=== PATIENT | female | born 1945 | race Caucasian/White ===

== ENCOUNTER 2018-02-16 13:11 | Day surgery (SDC) | payer MEDICARE ==
[~2018-02-16] VITALS: Ht 165.1 cm; Wt 61.7 kg
[~2018-02-16 13:11] MED LIST: ALBU90OI INH; ALPR.5 PO; ATEN25 PO; BUDE6HFA INH; CITA20 PO; HYDACE5 PO; LEVSOD100 PO; OXYB5 PO; PANT40 PO; PRAV20 PO; SUCR1 PO; SULFAMETHOXAZOLE PO; TIOT18; VENL150ER PO
== END 2018-02-16 16:00 | disposition home or self-care (01) ==
LOC: ORSCSDS 13:11
PROVIDERS: Surgery
PROC: 0DJD8ZZ Inspection of Lower Intestinal Tract, Via Natural or Artificial Opening Endoscopic (ICD-10-PCS; principal; 2018-02-16 14:30)
DX: Z12.11 Encounter for screening for malignant neoplasm of colon (principal); K57.30 Diverticulosis of large intestine without perforation or abscess without bleeding; E03.9 Hypothyroidism, unspecified; J43.9 Emphysema, unspecified; F17.210 Nicotine dependence, cigarettes, uncomplicated; Z79.899 Other long term (current) drug therapy
CPT/HCPCS: J7120

== ENCOUNTER 2019-02-10 08:50 | Inpatient (IN) | payer MEDICARE ==
[~2019-02-10] VITALS: Ht 165.1 cm; Wt 67.7 kg
[~2019-02-10 08:50] MED LIST changes: +ABILIFY PO; -ATEN25 PO; -LEVSOD100 PO; +LEVSOD75 PO; +SALM50IP INH
[2019-02-10] MEDS ORDERED: Tizanidine HCl2 MG PO (09:06)
[2019-02-10] MEDS ORDERED: Venlafaxine HC225 MG PO (09:06)
[2019-02-10] MEDS ORDERED: Hydrocodone-Ap1 EA23 PO (09:07)
[2019-02-10 09:14] LABS: BASOPHILS ABSOLUTE AUTO 0.02 K/mm3 (0.00-0.23); BASOPHILS PERCENT AUTO 0 % (0-2); EOSINOPHILS ABSOLUTE AUTO 0.01 K/mm3 (0.00-0.68); EOSINOPHILS PERCENT AUTO 0 % (0-6); Hematocrit 35.6 % (33.0-51.0); Hemoglobin 12.4 g/dL (11.5-16.0); IMMATURE GRAN ABSOLUTE AUTO 0.06 K/mm3 (0.00-0.10); IMMATURE GRAN PERCENT AUTO 1 % (0-1); LYMPHOCYTES ABSOLUTE AUTO 0.43 K/mm3 (0.84-5.20); LYMPHOCYTES PERCENT AUTO 4 % (21-46); MONOCYTES PERCENT AUTO 3 % (4-13); Mean Corpuscular HGB 29.9 pg (26.0-34.0); Mean Corpuscular HGB Conc 34.8 g/dL (31.5-36.5); Mean Corpuscular Volume 86 fL (80-100); Mean Platelet Volume 9.4 fL (9.1-12.4); NEUTROPHILS ABSOLUTE AUTO 11.14 K/mm3 (1.96-9.15); NEUTROPHILS PERCENT AUTO 92 % (41-73); Platelet Count 329 K/mm3 (150-400); RDW Coefficient Variation 14.5 % (11.7-14.2); Red Blood Cell Count 4.15 M/mm3 (3.80-5.20); White Blood Cell Count 12.06 K/mm3 (4.00-11.30)
[2019-02-10 09:31] LABS: Alanine Aminotransfer (ALT/SGP 17 U/L (12-78); Albumin, Blood 3.6 g/dL (3.4-5.0); Albumin/Globulin Ratio 0.9 (0.8-1.8); Alk Phos 167 U/L (50-136); Anion Gap 8 mmol/L (6-16); Aspartate Aminotrans (AST/SGOT 26 U/L (12-37); Bilirubin, Total 0.6 mg/dL (0.1-1.0); Blood Urea Nitrogen 24 mg/dL (8-24); Bun/Creatinine Ratio 31.8 (12.0-20.0); CO2, Blood 29 mmol/L (21-32); Calcium, Blood 9.6 mg/dL (8.5-10.1); Chloride, Blood 98 mmol/L (98-108); Creatinine, Blood 0.75 mg/dL (0.40-1.00); Globulin, Blood 3.9 g/dL (2.2-4.0); Glomerular Filtration Rate >60 (60-); Glucose, Blood 178 mg/dL (70-99); Potassium, Blood 4.1 mmol/L (3.5-5.5); Sodium, Blood 135 mmol/L (136-145); Total Protein, Blood 7.5 g/dL (6.4-8.2)
[2019-02-10 10:38] LABS: International Normalized Ratio 0.98; Prothrombin Time Results 10.4 Sec (9.7-11.5)
[2019-02-10] MEDS ORDERED: ATEN25 PO (12:16)
--- NOTE | 2019-02-10 16:28 | NUR ---
2 cc of air removed from the TR band. No bleeding, no hematoma. Small amount of bruising noted under the TR band and just distal to the TR band, where there are 2 additional non-arterial puncture sites; unchanged from the initial assessment upon arrival from the heart center. The pt reports no pain, and denies any difficulty breathing, chest discomfort or pain in her right arm/hand. Vital signs stable, SpO2 measured on index finger of right hand. Ambulatory to the bathroom and back to bed with standby assistance. She was able to eat a very small amount of a snack, and drink some coffee and water.
--- NOTE | 2019-02-10 17:24 | NUR ---
TR band was slowly deflated, and the site is without any bleeding, swelling, hematoma. Bruising (soft to palpation) area about 1-2 cm round distal to the TR band border is stable. Fingers are pink and warm to the touch at this time. The pt reports no pain/discomfort at this time. White immobilizer board remains in place as well as the completely deflated TR band.
--- NOTE | 2019-02-10 18:51 | NUR ---
TR band was removed at this time, 1.25 hours after deflation was completed. Site was cleaned with chlorohexidine swabs and clear tegederm dressing was applied. Soft, no swelling, no bleeding. Bruised area remains unchanged from prior assessment. The pt states she is tired, trying to get some more sleep. Declined dinner at this time. STates lately she has had a poor appetite.
[2019-02-11 04:22] LABS: BASOPHILS ABSOLUTE AUTO 0.01 K/mm3 (0.00-0.23); BASOPHILS PERCENT AUTO 0 % (0-2); EOSINOPHILS ABSOLUTE AUTO 0.02 K/mm3 (0.00-0.68); EOSINOPHILS PERCENT AUTO 0 % (0-6); Hematocrit 26.3 % (33.0-51.0); Hemoglobin 9.2 g/dL (11.5-16.0); IMMATURE GRAN ABSOLUTE AUTO 0.02 K/mm3 (0.00-0.10); IMMATURE GRAN PERCENT AUTO 0 % (0-1); LYMPHOCYTES PERCENT AUTO 13 % (21-46); MONOCYTES ABSOLUTE AUTO 0.59 K/mm3 (0.16-1.47); MONOCYTES PERCENT AUTO 11 % (4-13); Mean Corpuscular HGB 30.6 pg (26.0-34.0); Mean Corpuscular Volume 87 fL (80-100); Mean Platelet Volume 9.1 fL (9.1-12.4); NEUTROPHILS ABSOLUTE AUTO 3.96 K/mm3 (1.96-9.15); NEUTROPHILS PERCENT AUTO 75 % (41-73); Platelet Count 225 K/mm3 (150-400); RDW Coefficient Variation 14.8 % (11.7-14.2); RDW Standard Deviation 47.2 fL (35.1-46.3); Red Blood Cell Count 3.01 M/mm3 (3.80-5.20)
[2019-02-11 04:45] LABS: Alanine Aminotransfer (ALT/SGP 14 U/L (12-78); Alk Phos 120 U/L (50-136); Anion Gap 8 mmol/L (6-16); Aspartate Aminotrans (AST/SGOT 28 U/L (12-37); Bilirubin, Total 0.6 mg/dL (0.1-1.0); Blood Urea Nitrogen 26 mg/dL (8-24); Bun/Creatinine Ratio 35.4 (12.0-20.0); CO2, Blood 29 mmol/L (21-32); Calcium, Blood 8.7 mg/dL (8.5-10.1); Chloride, Blood 102 mmol/L (98-108); Creatinine, Blood 0.73 mg/dL (0.40-1.00); Globulin, Blood 2.9 g/dL (2.2-4.0); Glomerular Filtration Rate >60 (60-); Glucose, Blood 110 mg/dL (70-99); Magnesium, Blood 2.2 mg/dL (1.6-2.4); Phosphorus, Blood 3.1 mg/dL (2.5-4.9); Sodium, Blood 139 mmol/L (136-145); Total Protein, Blood 5.9 g/dL (6.4-8.2)
--- NOTE | 2019-02-11 06:31 | NUR ---
UPDATE DR STUART NOTIFIED SEVERAL TIMES ABOUT LOW BLOOD PRESSURE AND SEVERAL IV FLUID BOLUSES WERE ORDERED THROUGHOUT THE NIGHT (SEE EMAR). AT APPROX 0610 DR FITZPATRICK WAS UPDATED ON THE LOW BLOOD PRESSURES THROUGHOUT THE NIGHT AND THE INTERVENTIONS PROVIDED THROUGHOUT THE NIGTH. DR FITZPATRICK ALSO NOTIFIED THAT PATIENT'S HGB DROPPED FROM 12.4 DOWN TO 9.2. A ONE LITER FLUID BOLUS WAS ORDERED AND DR FITZPATRICK STATED THAT SHE WOULD STOP BY TO SEE PATIENT FIRST THING THIS MORNING. PATIENT STATES THAT SHE HAS FELT SLIGHTLY DIZZY SOMETIMES WHEN STANDING UP BUT HAS MOSTLY REMAINED ASYMPTOMATIC. PATIENT HAS NO COMPLAINTS OF PAIN AND PATIENT'S RADIAL ACCESS SITE TO RIGHT WRIST HAS NO SIGNS OF BLEEDING OR HEMATOMA FORMATION. WILL CONTINUE TO MONITOR.
--- NOTE | 2019-02-11 06:37 | NUR ---
UPDATE AT APPROX 0630 DR STUART CAME BY TO ASSESS PATIENT.
--- NOTE | 2019-02-11 08:03 | NUR ---
SHIFT SUMMARY PATIENT PLEASENT AND COOPERATIVE THROUGHOUT THE NIGHT. PATIENT APPEARED TO SLEEP WELL THROUGHOUT MOST OF THE SHIFT AND STATES THAT SHE FEELS SHE SELPT WELL LAST NIGHT. PATIENT'S ANGIO ACCESS SITE TO RIGHT WRIST REMAINS UNCHANGED THROUGHOUT THE NIGHT WITH NO SIGNS OF BLEEDING OR HEMATOMA FORMATION. PATIENT'S VITAL SIGNS CHARTED. TREATED PER ORDERS (SEE PREVIOUS NURSE NOTES). REPORT GIVEN TO ONCOMING RN.
--- NOTE | 2019-02-11 09:50 | NUR ---
UPDATE CALLED DR. FITZPATRICK ABOUT LOW BLOOD PRESSURE. PT COMPLAINS OF "SEEING SPARKLES AND NOT FEELING RIGHT". NS INFUSING AT 200MLS/H. ORDERS TO HOLD ALL MEDS AFFECTING BP. ATTEMPTING TO CONTACT CARDIOLOGY. WILL AWAIT CALL BACK. WILL CONTINUE TO MONITOR CLOSELY.
[2019-02-11 10:26] LABS: Hematocrit 26.3 % (33.0-51.0); Hemoglobin 8.8 g/dL (11.5-16.0)
--- NOTE | 2019-02-11 10:58 | NUR ---
BP REMAINS LOW. STILL UNABLE TO CONTACT DR. OROZCO. PT ASYMPTOMATIC AT THIS TIME. DR. FITZPATRICK CALLED AND NOTIFIED. AWAITING NEW ORDERS. WILL CONTINUE TO MONITOR CLOSELY.
--- NOTE | 2019-02-11 11:31 | NUR ---
BP OF 60/41. PT REPORTS BLURRED VISION. DR. FITZPATRICK CALLED. 1L FLUID BOLUS INFUSING. ORDERS TO TRANSFER TO ICU.
--- NOTE | 2019-02-11 12:14 | NUR ---
ASSUMED CARE PT ARRIVES FROM PCU AT THIS TIME. PT. ALERT AND ORIENTED UPON ARRIVAL, ON ROOM AIR. PT. TRANSFERRED TO ICU BED. PLACED ON CAREER PORTALS TEACHER. PT HAD NITRO PATCH IN PLACE TO LEFT CHEST WALL UPON ARRIVAL, THIS WAS REMOVED PROMPTLY. PT IS HYPOTENSIVE UPON ARRIVAL WITH 1LFLUID BOLUS INFUSING. PT. NOT SYMPTOMATIC AT THIS TIME, HR 70S. DR. GUTIERREZ (DR. Fischer) AT BEDSIDE. FLUID BOLUS REDUCED TO A 250CC BOLUS. FINE CRACKLES IN BASES OF LUNGS UPON ARRIVAL. PT. DENIES ANY CHEST PAIN OR PRESSURE AND DENIES ANY FEELINGS OF SOB. PT. WELLER; ARM BOARD IN PLACE TO RIGHT WRIST FROM PREVIOUS ANGIO ACCESS SITE. SITE WNL, NO HEMATOMA. MIDODRINE 5MG TAB GIVEN PER DR. Fischer. WILL CONTINUE TO MONITOR CLOSELY
--- NOTE | 2019-02-11 12:50 | NUR ---
UPDATE 250CC BOLUS COMPELTED. PT. BP IMPROVING, NOW 90S SYSTOLIC. DR. BIRD IN TO SEE PT. LUNCH TRAY PROVIDED. CALL LIGHT IN REACH.
--- NOTE | 2019-02-11 14:14 | NUR ---
BLOOD PRESSURE PT. UP TO BEDSIDE COMMODE WITH STAND BY ASSIST. BP WNL PRIOR TO STANDING. PT DENIED FEELING DIZZY WHEN STANDING, NO BM JUST GAS. UPON GETTING BACK TO BED PT BP TRENDING BACK DOWN. DR. BIRD AWARE, ADDITIONAL 10MG MIDODRINE GIVEN. [facility] CALLED FOR AN ADDITIONAL H&H
[2019-02-11 14:23] LABS: Hemoglobin 8.5 g/dL (11.5-16.0)
--- NOTE | 2019-02-11 17:35 | NUR ---
SHIFT SUMMARY PT. REMAINS UNSYMPTOMATIC SINCE ARRIVAL TO ICU, HOWEVER BLOOD PRESSURE CONTINUES TO BY HYPOTENSIVE AT TIMES. PER DR. FITZPATRICK PT. TO HAVE PRN MIDODRINE ORDERED. PT SITTING UP ON BEDSIDE EATING DINNER. NADN. CALL LIGHT IN REACH. REPORT TO ONCOMING RN.
--- NOTE | 2019-02-11 19:30 | NUR ---
ASSUMED CARE PT SITTING IN BED WATCHING TV, PT IS A&0, DENIES COMPLAINTS OF PAIN OR SOB. PER PT, WHEN BP GETS TOO LOW, SHE IS DIZZY AND HAS VISION CHANGES-DENIES CURRENTLY. PLAN ON PRN MIDODRINE FOR SBP <80 OR MAP <60. SBP CURRENTLY 80-90, ECG SHOWS SR WITH FREQUENT PVC'S, SPOT CHECK SPO2 AT 98% ON RA.
--- NOTE | 2019-02-12 02:32 | NUR ---
RHYTHM CHANGE PT UP TO BATHROOM AT 0150, HR NOTED TO INCREASE TO 130-150'S. PT REPORTING ANXIETY. 12 LEAD EKG OBTAINED SHOWING AFIB. CALL TO DR ELLSWORTH-UPDATED ON FINDINGS AND INABILITY TO GIVE PO TOPROL D/T HYPOTENSION FOR LAST 36 HOURS. ORDER FOR IV LOPRESSOR NOW.
[2019-02-12 03:29] LABS: BASOPHILS ABSOLUTE AUTO 0.02 K/mm3 (0.00-0.23); BASOPHILS PERCENT AUTO 0 % (0-2); EOSINOPHILS ABSOLUTE AUTO 0.06 K/mm3 (0.00-0.68); EOSINOPHILS PERCENT AUTO 1 % (0-6); Hematocrit 29.1 % (33.0-51.0); Hemoglobin 9.8 g/dL (11.5-16.0); IMMATURE GRAN ABSOLUTE AUTO 0.03 K/mm3 (0.00-0.10); IMMATURE GRAN PERCENT AUTO 0 % (0-1); LYMPHOCYTES ABSOLUTE AUTO 0.48 K/mm3 (0.84-5.20); LYMPHOCYTES PERCENT AUTO 5 % (21-46); MONOCYTES ABSOLUTE AUTO 0.81 K/mm3 (0.16-1.47); MONOCYTES PERCENT AUTO 9 % (4-13); Mean Corpuscular HGB 29.9 pg (26.0-34.0); Mean Corpuscular HGB Conc 33.7 g/dL (31.5-36.5); Mean Corpuscular Volume 89 fL (80-100); Mean Platelet Volume 9.3 fL (9.1-12.4); NEUTROPHILS ABSOLUTE AUTO 7.48 K/mm3 (1.96-9.15); NEUTROPHILS PERCENT AUTO 84 % (41-73); Platelet Count 209 K/mm3 (150-400); RDW Coefficient Variation 15.2 % (11.7-14.2); RDW Standard Deviation 49.9 fL (35.1-46.3); Red Blood Cell Count 3.28 M/mm3 (3.80-5.20); White Blood Cell Count 8.88 K/mm3 (4.00-11.30)
[2019-02-12 03:55] LABS: Anion Gap 8 mmol/L (6-16); Blood Urea Nitrogen 17 mg/dL (8-24); Bun/Creatinine Ratio 22.5 (12.0-20.0); CO2, Blood 25 mmol/L (21-32); Calcium, Blood 8.7 mg/dL (8.5-10.1); Chloride, Blood 102 mmol/L (98-108); Creatinine, Blood 0.75 mg/dL (0.40-1.00); Glomerular Filtration Rate >60 (60-); Glucose, Blood 106 mg/dL (70-99); Potassium, Blood 4.1 mmol/L (3.5-5.5); Sodium, Blood 135 mmol/L (136-145)
[2019-02-12 04:12] LABS: Troponin I 0.934 ng/mL (0.000-0.040)
--- NOTE | 2019-02-12 05:43 | NUR ---
UPDATE ON AFIB PT HR 110-120'S AFTER LOPRESSOR. NO BACK IN THE 130-170'S AFTER USING RESTROOM. DISCUSSED UOP AND CURRENT BP WITH DR BIRD. ORDERS FOR AMIODARONE BOLUS FOLLOWED BY STANDARD GTT.
--- NOTE | 2019-02-12 07:10 | NUR ---
BEDSIDE REPORT TAKEN. AMIODARONE GTT AT 1MG/MIN. PT IN AFIB W RATE 110-130. BP STABLE W SBP 120-130'S. PT DENIES COMPLAINTS AND IS IN DENIAL ABOUT EVENTS; ESSENTIALLY FEELS TOO MUCH OF A FUSS IS BEING MADE OVER HER. PT EDUCATED.
--- NOTE | 2019-02-12 08:49 | NUR ---
PT AWAKE SITTING UP IN BED. DENIES C/O PAIN, CHEST PAIN, NAUSEA, SOB. PT APPEARS SOMEWHAT ANXIOUS, STATES SHE FEELS FINE AND BELIEVES SHE COULD GO HOME. PT SAT AT SIDE OF BED FOR BREAKFAST; VISIBLY SHORT OF BREATH W EXERTION; PT DENIES SOB OR DIZZINESS. PT SBA TO TOILET TO VOID; HEART RATE 150-170, RESP RATE 25-30 W AUDIBLE WHEEZES, NOTICEABLY SOB; AGAIN PT DENIES COMPLAINTS OF SOB OR DIZZINESS, "I FEEL FINE", "WHAT AM I GOING TO BE STUCK IN BED FOREVER?" PT FRUSTRATED. PT CONSOLED AND EDUCATED W GOOD OUTCOME. PT RESTING IN BED NOW.
--- NOTE | 2019-02-12 10:37 | NUR ---
DR GUTIERREZ AND DR FITZPATRICK IN TO SEE PT THIS AM. SEE NEW ORDERS. PLAN; CHANGE TO PCU STATUS, CONT AMIO GTT, POSSIBLE DICHARGE HOME TOMORROW, START LOW DOSE BETA SUJATHA PO BID.
[2019-02-12 11:57] LABS: Percent Saturation 26.2 % (15.0-50.0)
--- NOTE | 2019-02-12 12:08 | NUR ---
LASIX 20MG GIVEN, WILL CHECK ORTHOSTATIC PRESSURES PRIOR TO CHANGE IN STATUS PER DR BIRD.
[2019-02-12 12:17] LABS: Phosphorus, Blood 2.3 mg/dL (2.5-4.9)
--- NOTE | 2019-02-12 12:38 | NUR ---
AMIODARONE DECREASED TO 0.5MG/MIN PER ORDERS. PT SITTING AT SIDE OF BED EATING LUNCH AFTER NAP. BP STABLE
--- NOTE | 2019-02-12 16:40 | NUR ---
PT CONVERTED TO SR W RATE 80'S AT 1431. ORTHOSTATIC PRESSURES TAKEN PER DR SUBRAMANIAN REQUEST. ORTHOSTATIC BP STABLE; RESULTS GIVEN TO DR BIRD.
--- NOTE | 2019-02-12 19:15 | NUR ---
ASSUMED CARE PT RESTING IN BED, CURRENTLY WITHOUT COMPLAINTS OF PAIN OR SHORTNESS OF BREATH. PER AM RN, PT CONVERTED TO SR AROUND 1400. AMIODARONE GTT CONTINUES AT 0.5MG/MIN UNTIL 0630. DISCUSSED OVERNIGHT PLAN WITH PT, REQUESTING XANAX AT HS, DISCUSSED BED BATH WITH REGIONAL CLIMATE CHANGE ANALYST. BP STABLE, ECG SHOWS SR WITH FREQ PVC'S AND O2 SATS 96% ON RA.
[2019-02-13 03:53] LABS: BASOPHILS ABSOLUTE AUTO 0.01 K/mm3 (0.00-0.23); BASOPHILS PERCENT AUTO 0 % (0-2); EOSINOPHILS ABSOLUTE AUTO 0.09 K/mm3 (0.00-0.68); EOSINOPHILS PERCENT AUTO 2 % (0-6); Hematocrit 28.3 % (33.0-51.0); Hemoglobin 9.5 g/dL (11.5-16.0); IMMATURE GRAN ABSOLUTE AUTO 0.02 K/mm3 (0.00-0.10); IMMATURE GRAN PERCENT AUTO 0 % (0-1); LYMPHOCYTES ABSOLUTE AUTO 0.51 K/mm3 (0.84-5.20); LYMPHOCYTES PERCENT AUTO 11 % (21-46); MONOCYTES ABSOLUTE AUTO 0.51 K/mm3 (0.16-1.47); MONOCYTES PERCENT AUTO 11 % (4-13); Mean Corpuscular HGB 29.4 pg (26.0-34.0); Mean Corpuscular HGB Conc 33.6 g/dL (31.5-36.5); Mean Corpuscular Volume 88 fL (80-100); Mean Platelet Volume 9.7 fL (9.1-12.4); NEUTROPHILS ABSOLUTE AUTO 3.43 K/mm3 (1.96-9.15); NEUTROPHILS PERCENT AUTO 75 % (41-73); Platelet Count 172 K/mm3 (150-400); RDW Coefficient Variation 15.1 % (11.7-14.2); RDW Standard Deviation 48.2 fL (35.1-46.3); Red Blood Cell Count 3.23 M/mm3 (3.80-5.20); White Blood Cell Count 4.57 K/mm3 (4.00-11.30)
[2019-02-13 04:16] LABS: Anion Gap 8 mmol/L (6-16); Blood Urea Nitrogen 14 mg/dL (8-24); Bun/Creatinine Ratio 19.2 (12.0-20.0); CO2, Blood 27 mmol/L (21-32); Calcium, Blood 8.7 mg/dL (8.5-10.1); Chloride, Blood 102 mmol/L (98-108); Creatinine, Blood 0.73 mg/dL (0.40-1.00); Glomerular Filtration Rate >60 (60-); Glucose, Blood 119 mg/dL (70-99); Magnesium, Blood 2.1 mg/dL (1.6-2.4); Potassium, Blood 3.5 mmol/L (3.5-5.5); Sodium, Blood 137 mmol/L (136-145); Troponin I 0.365 ng/mL (0.000-0.040)
--- NOTE | 2019-02-13 06:17 | NUR ---
SHIFT SUMMARY NO ACUTE EVENTS OVERNIGHT. PT WAS ALBE TO SLEEP FOR MAJORITY OF SHIFT. THIS AM WHILE GETTING UP TO BR, EXPIRATORY WHEEZING RETURNED, NO AUDIBLE RALES HEARD. SPO2 96% ON RA AND PT DENIES SOB. ECG HAS REMAINED SR WITH PVC'S ENTIRE SHIFT. VSS, SPO2 >90 ON SPOT CHECKS. AMIODARONE COMPLETED AND OFF AT 0615.
--- NOTE | 2019-02-13 08:40 | NUR ---
PT SITTING UP IN BED VISITING W FAMILY. DENIES COMPLAINTS. PT REMAINS IN NSR, BP STABLE. PLAN OOB TO CHAIR. POSSIBLE DISCHARGE HOME TODAY. LUNGS VERY DIMINISHED T/O, PT DENIES SOB, SATS 96% ON RA. PT DOES LOOK BETTER OVERALL COMPARED TO YESTERDAY.
[2019-02-13] MEDS ORDERED: METO25 PO (13:09)
[2019-02-13] MEDS ORDERED: ASPI81CH PO (13:13)
[2019-02-13] MEDS ORDERED: Pacerone400 MG PO (13:13)
[2019-02-13] MEDS ORDERED: ATOR40TA PO (13:14)
--- NOTE | 2019-02-13 13:55 | NUR ---
PT TO BE DISCARGED HOME. DR FITZPATRICK CALLED R/T RX PT'S PHARMACY IS CLOSED TODAY. ONE DOSE OF AMIODARONE WILL BE GIVEN PRIOR TO DISCHARGE. BP 83/45 W MAP 59, HEART RATE 80. VITALS GIVEN TO DR FITZPATRICK; OKAY TO MISS TONIGHTS DOSE OF LOPRESSOR. PT WILL ALSO HAVE CHANGE TO AMIO RX, PT WILL START OUT W AMIO 400MG BID INSTEAD OF TID. THESE CHANGES GIVEN TO PT. PT UNDERSTANDS VERBAL AND WRITTEN DC INSTRUCTIONS. PT GIVEN ICU NUMBER FOR ANY QUESTIONS OR CONCERNS.
--- NOTE | 2019-02-13 14:23 | NUR ---
PT DC'D HOME IN HER SISTERS CARE; PT DC'D IN STABLE CONDITION
== END 2019-02-13 14:25 | disposition home or self-care (01) | DRG 280 ==
LOC: ER 08:50 → ICUE 10:27 → ICUW 10:27 → ICUE 13:29 → PCU 14:23 → ICUE 02-11 11:50
PROVIDERS: Emergency Medicine; Internal Medicine Critical Care Medicine; Pharmacist; Student in an Organized Health Care Education/Training Program; ADMIT Hospitalist
PROC: 4A023N7 Measurement of Cardiac Sampling and Pressure, Left Heart, Percutaneous Approach (ICD-10-PCS; principal; 2019-02-10)
PROC: B211YZZ Fluoroscopy of Multiple Coronary Arteries using Other Contrast (ICD-10-PCS; 2019-02-10)
DX: I21.4 Non-ST elevation (NSTEMI) myocardial infarction (principal); I50.41 Acute combined systolic (congestive) and diastolic (congestive) heart failure; C91.10 Chronic lymphocytic leukemia of B-cell type not having achieved remission; I11.0 Hypertensive heart disease with heart failure; D64.9 Anemia, unspecified; I95.2 Hypotension due to drugs; I48.91 Unspecified atrial fibrillation; E83.39 Other disorders of phosphorus metabolism; K21.9 Gastro-esophageal reflux disease without esophagitis; E03.9 Hypothyroidism, unspecified; J44.9 Chronic obstructive pulmonary disease, unspecified; G89.4 Chronic pain syndrome; M54.16 Radiculopathy, lumbar region; F41.8 Other specified anxiety disorders
CPT/HCPCS: 36415; 71045; 74018; 80048; 80053; 82607; 82728; 83540; 83550; 83690; 83735; 83880; 84100; 84484; 85014; 85018; 85025; 85347; 85610; 85730; 93005; 93010; 93306; 93454; 93571; 93880; 94640; 94760; 96365; 96366; 96375; 96376; 99152; 99153; 99285-25; A9270-GY; C1769; C1887; C1894; J0282; J1644; J1940; J2250; J3010; J7030; J7060; Q9967

== ENCOUNTER → 2019-07-07 | Outpatient (CLI) | payer MEDICARE ==
[~2019-07-07] MED LIST changes: +ASPI81CH PO; +ATEN25 PO; +ATOR40TA PO; +Hydrocodone-Ap1 EA23 PO; +METO25 PO; +Pacerone400 MG PO; +Tizanidine HCl2 MG PO; +Venlafaxine HC225 MG PO
== END ==
LOC: LAB SHORT 10:15 → LAB EV 10:15
DX: R10.9 Unspecified abdominal pain (principal)
CPT/HCPCS: 87077; 87086; 87186

== ENCOUNTER → 2019-08-04 | Outpatient (CLI) | payer MEDICARE | LOC: LAB SHORT 10:15 → LAB EV 10:15 | DX: R35.0 Frequency of micturition (principal) | CPT/HCPCS: 87077; 87086; 87186 ==

== ENCOUNTER → 2019-08-22 | Outpatient (CLI) | payer MEDICARE | LOC: LAB SHORT 12:00 → LAB EV 12:00 | DX: R35.0 Frequency of micturition (principal) | CPT/HCPCS: 87077; 87086; 87186 ==

== ENCOUNTER 2019-11-09 22:02 | Inpatient (IN) | payer MEDICARE ==
[~2019-11-09] VITALS: Ht 162.6 cm; Wt 59.5 kg
[2019-11-09 22:18] LABS: BASOPHILS ABSOLUTE AUTO 0.04 K/mm3 (0.00-0.23); BASOPHILS PERCENT AUTO 0 % (0-2); EOSINOPHILS ABSOLUTE AUTO 0.03 K/mm3 (0.00-0.68); EOSINOPHILS PERCENT AUTO 0 % (0-6); Hematocrit 34.5 % (33.0-51.0); Hemoglobin 11.9 g/dL (11.5-16.0); IMMATURE GRAN ABSOLUTE AUTO 0.13 K/mm3 (0.00-0.10); IMMATURE GRAN PERCENT AUTO 1 % (0-1); LYMPHOCYTES ABSOLUTE AUTO 0.76 K/mm3 (0.84-5.20); LYMPHOCYTES PERCENT AUTO 5 % (21-46); MONOCYTES ABSOLUTE AUTO 0.93 K/mm3 (0.16-1.47); MONOCYTES PERCENT AUTO 6 % (4-13); Mean Corpuscular HGB 29.5 pg (26.0-34.0); Mean Corpuscular HGB Conc 34.5 g/dL (31.5-36.5); Mean Corpuscular Volume 85 fL (80-100); Mean Platelet Volume 9.8 fL (9.1-12.4); NEUTROPHILS ABSOLUTE AUTO 14.24 K/mm3 (1.96-9.15); NEUTROPHILS PERCENT AUTO 88 % (41-73); Platelet Count 457 K/mm3 (150-400); RDW Coefficient Variation 15.8 % (11.7-14.2); RDW Standard Deviation 47.8 fL (35.1-46.3); Red Blood Cell Count 4.04 M/mm3 (3.80-5.20); White Blood Cell Count 16.13 K/mm3 (4.00-11.30)
[2019-11-09 22:36] LABS: Alanine Aminotransfer (ALT/SGP 14 U/L (12-78); Albumin, Blood 2.8 g/dL (3.4-5.0); Albumin/Globulin Ratio 0.7 (0.8-1.8); Alk Phos 67 U/L (50-136); Anion Gap 13 mmol/L (6-16); Aspartate Aminotrans (AST/SGOT 24 U/L (12-37); Bilirubin, Total 0.9 mg/dL (0.1-1.0); Blood Urea Nitrogen 14 mg/dL (8-24); Bun/Creatinine Ratio 19.4 (12.0-20.0); CO2, Blood 29 mmol/L (21-32); Calcium, Blood 8.4 mg/dL (8.5-10.1); Chloride, Blood 92 mmol/L (98-108); Creatinine, Blood 0.72 mg/dL (0.40-1.00); Globulin, Blood 3.8 g/dL (2.2-4.0); Glomerular Filtration Rate >60 (60-); Glucose, Blood 153 mg/dL (70-99); Potassium, Blood 3.8 mmol/L (3.5-5.5); Sodium, Blood 134 mmol/L (136-145); Total Protein, Blood 6.6 g/dL (6.4-8.2)
[2019-11-09] MEDS ORDERED: ONDA4ODT (22:38)
[2019-11-09] MEDS ORDERED: Ventolin/Prove6.7 GM (22:39)
[2019-11-09] MEDS ORDERED: ALPRAZOLAM0.5 M1 PO (22:39)
[2019-11-09] MEDS ORDERED: FLUTICASONE-SA1 EAC4 INH (22:39)
[2019-11-09 23:34] LABS: Troponin I 0.023 ng/mL (0.000-0.040)
[2019-11-10 00:47] LABS: Source, Urine Clean Catch
[2019-11-10 00:51] LABS: Blood, Urine Neg (Neg); Glucose Qualitative, Urine Neg (Neg); Ketones, Urine 3+ (Neg); Leukocyte Esterase, Urine 1+ (Neg); Nitrite, Urine Neg (Neg); Protein, Urine 1+ (Neg); Urobilinogen, Urine 2+ (Normal)
[2019-11-10 00:56] LABS: Bilirubin, Urine 2+ (Neg)
[2019-11-10 00:57] LABS: Appearance, Urine Hazy (Clear); Bacteria Mod /hpf; Color, Urine Amber (P-Yellow); Red Blood Cells, Urine 0-2 /hpf (0-2); Squamous Epithelial Cells Few /hpf (Few)
[2019-11-10 00:58] LABS: Amorphous Light (0-Heavy); Hyaline Casts TNTC /lpf (0-2); Mucus Light (0-Heavy)
--- NOTE | 2019-11-10 03:57 | NUR ---
SHIFT SUMMARY: YOSSI IS A&OX4. SHE WAS ADMITTED FROM THE ER THIS MORNING. SHE REPORTS HAVING HAD A BOWEL RESECTION 10/27/19 AFTER WHICH SHE HAS HAD CONTINUAL DIFFICULTIES WITH N&V. SHE STATES THAT SHE CALLED HER SURGEON'S OFFICE TODAY AND THEY GAVE HER A PRESCRIPTION FOR ZOFRAN. SHE STATES THAT SHE DID TRY TO EAT YESTERDAY AROUND 12, BUT VOMITED SHORTLY AFTER. NG TUBE TO LOW INTERMITTENT SUCTION. GENTLE IV FLUIDS D/T HEART FAILURE. IV PATENT. VSS, NO ACUTE EVENTS. NPO, ON ROOM AIR. SHE IS STANDBY ASSIST. ATTENDS IN PLACE. SHE WAS UNABLE TO VOID IN THE ER AND STRAIGHT CATH WAS PERFORMED FOR URINE SAMPLE. SHE STATES THAT SHE HAS NOT BEEN ABLE TO KEEP MUCH OF ANYTHING DOWN OVER THE PAST 5-6 DAYS AND FEELS THAT IS WHY SHE IS NOT ABLE TO URINATE. SHE IS LYING IN BED WITH HER CALL LIGHT IN REACH. ABDOMEN TENDER. SHE STATES THAT THE FENTANYL HELPS CONTROL THE PAIN FOR A SHORT TIME. WILL REPORT TO DAY SHIFT RN.
--- NOTE | 2019-11-10 15:39 | NUR ---
SHIFT SUMMARY PT IS A/O X 4 AND C/O BACK PAIN THROUGHOUT THE DAY. PAIN MEDS HAVE BEEN GIVEN ORDERED AND REPORTED EFFECTIVE. SHE DENIES ANY NAUSEA TODAY BUT DOES REPORT THAT THE NG TUBE IS UNCOMFORTABLE ALTHOUGH EFFECTIVE. NG TUBE OUTPUT IS A GREEN/BROWN COLOR. DR BETANCUR WAS CALLED FOR A SURGICAL CONSULT AND SAW THE PT THIS AFTERNOON AND ORDERED A BAG OF FLUIDS WHICH IS RUNNING NOW. DR GRANADO OK'D ICE CHIPS AND ORAL SWABS HAVE BEEN USED THROUGHOUT THE DAY HER MOUTH IS VERY DRY. CBGS HAVE BEEN WNLS. PT IS ABLE TO MAKE HER NEEDS KNOWN AND CALLS FOR HELP WHEN NEEDED. HER CALL LIGHT IS IN REACH.
--- NOTE | 2019-11-10 16:19 | NUR ---
Per admit trigger, I met with Mrs. Hale to offer information/education on advanced care planning. She tells me shis happy with her POC and took the information packet to read later. I will remain available.
[2019-11-11 03:43] LABS: BASOPHILS ABSOLUTE AUTO 0.03 K/mm3 (0.00-0.23); BASOPHILS PERCENT AUTO 1 % (0-2); EOSINOPHILS ABSOLUTE AUTO 0.09 K/mm3 (0.00-0.68); EOSINOPHILS PERCENT AUTO 1 % (0-6); Hematocrit 30.1 % (33.0-51.0); Hemoglobin 9.6 g/dL (11.5-16.0); IMMATURE GRAN ABSOLUTE AUTO 0.03 K/mm3 (0.00-0.10); IMMATURE GRAN PERCENT AUTO 1 % (0-1); LYMPHOCYTES ABSOLUTE AUTO 0.49 K/mm3 (0.84-5.20); LYMPHOCYTES PERCENT AUTO 8 % (21-46); MONOCYTES ABSOLUTE AUTO 0.59 K/mm3 (0.16-1.47); MONOCYTES PERCENT AUTO 9 % (4-13); Mean Corpuscular HGB 28.6 pg (26.0-34.0); Mean Corpuscular HGB Conc 31.9 g/dL (31.5-36.5); Mean Platelet Volume 9.7 fL (9.1-12.4); NEUTROPHILS ABSOLUTE AUTO 5.32 K/mm3 (1.96-9.15); NEUTROPHILS PERCENT AUTO 81 % (41-73); Platelet Count 310 K/mm3 (150-400); RDW Coefficient Variation 15.9 % (11.7-14.2); RDW Standard Deviation 51.8 fL (35.1-46.3); Red Blood Cell Count 3.36 M/mm3 (3.80-5.20); White Blood Cell Count 6.55 K/mm3 (4.00-11.30)
[2019-11-11 03:44] LABS: Mean Corpuscular Volume 90 fL (80-100)
[2019-11-11 04:09] LABS: Alanine Aminotransfer (ALT/SGP 9 U/L (12-78); Albumin, Blood 2.5 g/dL (3.4-5.0); Albumin/Globulin Ratio 0.9 (0.8-1.8); Alk Phos 57 U/L (50-136); Anion Gap 11 mmol/L (6-16); Aspartate Aminotrans (AST/SGOT 11 U/L (12-37); Bilirubin, Total 0.9 mg/dL (0.1-1.0); Blood Urea Nitrogen 14 mg/dL (8-24); Bun/Creatinine Ratio 21.7 (12.0-20.0); CO2, Blood 31 mmol/L (21-32); Calcium, Blood 8.4 mg/dL (8.5-10.1); Chloride, Blood 97 mmol/L (98-108); Creatinine, Blood 0.64 mg/dL (0.40-1.00); Globulin, Blood 2.9 g/dL (2.2-4.0); Glomerular Filtration Rate >60 (60-); Glucose, Blood 106 mg/dL (70-99); Potassium, Blood 2.8 mmol/L (3.5-5.5); Sodium, Blood 139 mmol/L (136-145); Total Protein, Blood 5.4 g/dL (6.4-8.2)
[2019-11-11 04:35] LABS: Magnesium, Blood 1.6 mg/dL (1.6-2.4)
--- NOTE | 2019-11-11 05:23 | NUR ---
SHIFT SUMMARY: YOSSI IS A&OX4. SHE IS NPO EXCEPT FOR ICE CHIPS. SHE IS A STANDBY ASSIST TO THE BATHROOM. SHE DID HAVE A SMEAR BM THIS SHIFT. IV TO RIGHT HAND PATENT. POTASSIUM 2.8 THIS MORNING, ORDER OBTAINED FROM ASSESSMENT COORDINATOR PHYSICIAN FOR IV POTASSIUM. SHE REPORTS REASONABLE PAIN CONTROL WITH THE FENTANYL Q2. SHE DID HAVE A DOSE OF IV ATIVAN WHICH SHE REPORTED GAVE HER MINIMAL RELIEF FROM THE SYMPTOMS OF ANXIETY. SHE TAKES XANAX 0.5 MG PRN UP TO TID AT HOME. SHE IS ABLE TO MAKE HER NEEDS KNOWN. NG TUBE TO LOW INTERMITTENT SUCTION RETURNING BROWN LIQUID. SHE IS LYING IN BED WITH HER CALL LIGHT IN REACH. WILL REPORT TO DAY SHIFT RN.
--- NOTE | 2019-11-11 10:02 | NUR ---
IMAGING: PT TO IMAGING FOR SMALL BOWEL FOLLOW THROUGH. NGT CLAMMPED. IV SL.
[2019-11-11 16:23] LABS: Anion Gap 15 mmol/L (6-16); Blood Urea Nitrogen 16 mg/dL (8-24); CO2, Blood 32 mmol/L (21-32); Calcium, Blood 9.5 mg/dL (8.5-10.1); Chloride, Blood 94 mmol/L (98-108); Creatinine, Blood 0.67 mg/dL (0.40-1.00); Glomerular Filtration Rate >60 (60-); Glucose, Blood 130 mg/dL (70-99); Potassium, Blood 3.4 mmol/L (3.5-5.5); Sodium, Blood 141 mmol/L (136-145)
--- NOTE | 2019-11-11 17:47 | NUR ---
ROUNDING: DR BETANCUR IN TO SEE PATIENT. PLAN TRANSFER TO [facility]. [facility] TRANSFER STARTED AND NURSING LEGAL AIDE NOTIFIED. PT CONSENT TO TRANSFER.
--- NOTE | 2019-11-11 18:49 | NUR ---
transfer: PT TRANSFER TO [facility] AT THIS TIME. NGT REMAINS IN PLACE. IV FLUIDS SENT WITH PATIENT. ATTENDS IN PLACE. REPORT CALLED TO ACCEPTING RN.
== END 2019-11-11 18:58 | disposition short-term general hospital (02) | DRG 389 ==
LOC: ER 22:02 → SURS 11-10 01:43
PROVIDERS: Emergency Medicine; Family Medicine; Student in an Organized Health Care Education/Training Program; ADMIT Internal Medicine
DX: K56.609 Unspecified intestinal obstruction, unspecified as to partial versus complete obstruction (principal); I50.40 Unspecified combined systolic (congestive) and diastolic (congestive) heart failure; C91.10 Chronic lymphocytic leukemia of B-cell type not having achieved remission; K21.9 Gastro-esophageal reflux disease without esophagitis; J44.9 Chronic obstructive pulmonary disease, unspecified; E03.9 Hypothyroidism, unspecified; Z87.891 Personal history of nicotine dependence; Z79.82 Long term (current) use of aspirin; I48.91 Unspecified atrial fibrillation; I25.2 Old myocardial infarction; E86.0 Dehydration
CPT/HCPCS: 36415; 74176; 74250; 80048; 80053; 81001; 82947; 83605; 83690; 83735; 84484; 85025; 87077; 87086; 87186; 93005; 93010; 94640; 94760; 96361; 96374; 96375; 99285-25; J1170; J1650; J2060; J2405; J3010; J3480; J7030; J7120; P9612

== ENCOUNTER → 2019-12-08 | Outpatient (CLI) | payer MEDICARE ==
[~2019-12-08] MED LIST changes: +ALPRAZOLAM0.5 M1 PO; +FLUTICASONE-SA1 EAC4 INH; +ONDA4ODT; +Ventolin/Prove6.7 GM
[2019-12-08 06:11] LABS: Anion Gap 5 mmol/L (6-16); Blood Urea Nitrogen 13 mg/dL (8-24); Bun/Creatinine Ratio 15.6 (12.0-20.0); CO2, Blood 32 mmol/L (21-32); Calcium, Blood 8.1 mg/dL (8.5-10.1); Chloride, Blood 105 mmol/L (98-108); Creatinine, Blood 0.84 mg/dL (0.40-1.00); Glomerular Filtration Rate >60 (60-); Glucose, Blood 105 mg/dL (70-99); Potassium, Blood 3.2 mmol/L (3.5-5.5); Sodium, Blood 142 mmol/L (136-145)
== END ==
LOC: LAB UVN 04:25
PROVIDERS: Nurse Practitioner Family
DX: E87.6 Hypokalemia (principal)
CPT/HCPCS: 80048

== ENCOUNTER → 2020-05-31 | Outpatient (CLI) | payer MEDICARE | LOC: LAB EV 12:57 | DX: R35.0 Frequency of micturition (principal) | CPT/HCPCS: 87086 ==

== ENCOUNTER → 2021-01-22 | Outpatient (CLI) | payer OTHER ==
[2021-01-22 14:26] LABS: BASOPHILS ABSOLUTE AUTO 0.02 K/mm3 (0.00-0.23); BASOPHILS PERCENT AUTO 0 % (0-2); EOSINOPHILS ABSOLUTE AUTO 0.06 K/mm3 (0.00-0.68); EOSINOPHILS PERCENT AUTO 1 % (0-6); Hematocrit 29.1 % (33.0-51.0); Hemoglobin 10.1 g/dL (11.5-16.0); IMMATURE GRAN ABSOLUTE AUTO 0.03 K/mm3 (0.00-0.10); IMMATURE GRAN PERCENT AUTO 0 % (0-1); LYMPHOCYTES ABSOLUTE AUTO 0.34 K/mm3 (0.84-5.20); LYMPHOCYTES PERCENT AUTO 5 % (21-46); MONOCYTES ABSOLUTE AUTO 0.61 K/mm3 (0.16-1.47); MONOCYTES PERCENT AUTO 8 % (4-13); Mean Corpuscular HGB 29.5 pg (26.0-34.0); Mean Corpuscular HGB Conc 34.7 g/dL (31.5-36.5); Mean Corpuscular Volume 85 fL (80-100); NEUTROPHILS ABSOLUTE AUTO 6.22 K/mm3 (1.96-9.15); NEUTROPHILS PERCENT AUTO 85 % (41-73); Platelet Count 235 K/mm3 (150-400); RDW Coefficient Variation 13.9 % (11.7-14.2); RDW Standard Deviation 43.1 fL (35.1-46.3); Red Blood Cell Count 3.42 M/mm3 (3.80-5.20); White Blood Cell Count 7.28 K/mm3 (4.00-11.30)
[2021-01-22 15:06] LABS: Alanine Aminotransfer (ALT/SGP 37 U/L (12-78); Albumin, Blood 3.1 g/dL (3.4-5.0); Albumin/Globulin Ratio 0.7 (0.8-1.8); Alk Phos 169 U/L (50-136); Anion Gap 6 mmol/L (6-16); Aspartate Aminotrans (AST/SGOT 41 U/L (12-37); Bilirubin, Total 0.6 mg/dL (0.1-1.0); Blood Urea Nitrogen 17 mg/dL (8-24); CO2, Blood 28 mmol/L (21-32); Calcium, Blood 9.2 mg/dL (8.5-10.1); Chloride, Blood 99 mmol/L (98-108); Creatinine, Blood 0.81 mg/dL (0.40-1.00); Globulin, Blood 4.5 g/dL (2.2-4.0); Glomerular Filtration Rate >60 (60-); Glucose, Blood 143 mg/dL (70-99); Potassium, Blood 3.9 mmol/L (3.5-5.5); Sodium, Blood 133 mmol/L (136-145); Thyroid Stimulating Hormone 0.026 uIU/mL (0.360-4.800); Total Protein, Blood 7.6 g/dL (6.4-8.2); Troponin I <0.015 ng/mL (0.000-0.040)
== END | disposition home or self-care (01) ==
LOC: LAB SHORT 14:18
PROVIDERS: Chiropractor
DX: R53.83 Other fatigue (principal)
CPT/HCPCS: 80053; 83880; 84443; 84484; 85025; 85379

== ENCOUNTER 2021-02-28 06:29 | Day surgery (SDC) | payer MEDICARE ==
[~2021-02-28] VITALS: Ht 160 cm; Wt 54.4 kg
[~2021-02-28 06:29] MED LIST changes: +DOCU100 PO; +ELIQUIS5 M2 PO
--- NOTE | 2021-02-28 07:02 | NUR ---
History, Chart, Medications and Allergies reviewed before start of procedure. Lungs clear T/O to Auscultation BUT DIMINISHED. Patient confirms NPO status and agrees with scheduled surgery. Pre-Op teaching done. Pt verbalizes understanding. Patient States Post-Procedure ride home has been arranged.
--- NOTE | 2021-02-28 07:34 | NUR ---
02/28/21 0734 Jenn Lopez HISTORY,CHART, MEDICATIONS AND ALLERGIES REVIEWED BEFORE START OF PROCEDURE. PATIENT CONFIRMS NPO STATUS AND AGREES WITH SCHEDULED PROCEDURE. 3-LEAD EKG REVIEWED WITH PHYSICIAN PRIOR TO START OF PROCEDURE. MONITOR INTACT WITH CONTINUOUS PULSE OXIMETRY AND INTERMITTENT BP. SUPPLEMENTAL O2 TO BE TITRATED THROUGHOUT PROCEDURE TO MAINTAIN O2 SATURATION ABOVE 90%. PATIENT DETERMINED TO BE ASA APPROPRIATE FOR MODERATE SEDATION PRIOR TO START OF PROCEDURE BY .
--- NOTE | 2021-02-28 09:49 | NUR ---
ASSUMED PT CARE, PT RESTING, BUT AWAKE. DENIES ANY PAIN AT THIS TIME. 02 TURNED OFF, PT REPORTS SHE WEARS 02 AT NIGHT.
--- NOTE | 2021-02-28 10:12 | NUR ---
PT'S SISTER MORENO CALLED, PLANNING TO BE HER AT 1100.
--- NOTE | 2021-02-28 10:17 | NUR ---
Discharge instructions reviewed with patient. Patient verbalizes understanding. Copy given to patient to take home. Patient States Post-Procedure ride home has been arranged.
--- NOTE | 2021-02-28 10:55 | NUR ---
dc out, via ethel.
== END 2021-02-28 10:55 | disposition home or self-care (01) ==
LOC: ORSCMMR 06:29 → ORD 07:30 → ORSCMMR 10:55
PROVIDERS: Internal Medicine Critical Care Medicine
PROC: 0BBC8ZX Excision of Right Upper Lung Lobe, Via Natural or Artificial Opening Endoscopic, Diagnostic (ICD-10-PCS; principal; 2021-02-28 07:30)
DX: R91.8 Other nonspecific abnormal finding of lung field (principal); I25.2 Old myocardial infarction; R06.02 Shortness of breath; Z79.899 Other long term (current) drug therapy; Z87.891 Personal history of nicotine dependence; Z99.81 Dependence on supplemental oxygen
CPT/HCPCS: 88305; A9270; J0171; J2250; J3010; J7120

== ENCOUNTER 2021-06-06 01:12 | Day surgery (SDC) | payer MEDICARE ==
[2021-06-06] MEDS ORDERED: Prinivil10 MG PO (10:18)
[2021-06-06] MEDS ORDERED: DULOXETINE HCL60 M1 PO (10:19)
[2021-06-06] MEDS ORDERED: TRELEGY ELLIPT1 EACH INH (10:19)
[2021-06-06] MEDS ORDERED: ABILIFY5 MG PO (10:20)
[2021-06-06] MEDS ORDERED: ONDA4 PO (10:21)
== END 2021-06-06 12:02 | disposition home or self-care (01) ==
LOC: ATC 01:12
DX: C34.11 Malignant neoplasm of upper lobe, right bronchus or lung (principal); D63.0 Anemia in neoplastic disease; I10 Essential (primary) hypertension; J44.9 Chronic obstructive pulmonary disease, unspecified; Z87.891 Personal history of nicotine dependence; Z88.1 Allergy status to other antibiotic agents; Z88.5 Allergy status to narcotic agent
CPT/HCPCS: 36415; 36430; 86850; 86900; 86901; 86920; J7050; P9016

== ENCOUNTER 2021-07-26 08:22 | Day surgery (SDC) | payer MEDICARE ==
[~2021-07-26] VITALS: Ht 160 cm; Wt 55.4 kg
[~2021-07-26 08:22] MED LIST changes: +ABILIFY5 MG PO; +DULOXETINE HCL60 M1 PO; +ONDA4 PO; +Prinivil10 MG PO; +TRELEGY ELLIPT1 EACH INH
--- NOTE | 2021-07-26 12:30 | NUR ---
Dressing to procedure site clean, dry, intact with no visible drainage, swelling, erythema or bruising noted.
--- NOTE | 2021-07-26 13:05 | NUR ---
Dressing to procedure site clean, dry, intact with no visible drainage, swelling, erythema or bruising noted. Discharge instructions reviewed with patient. Patient verbalizes understanding. Copy given to patient to take home. Discharged via wheelchair to private car for ride home.
== END 2021-07-26 13:07 | disposition home or self-care (01) ==
LOC: ORSCMMR 08:22 → ORD 09:45 → ORSCMMR 09:45
PROVIDERS: Surgery
PROC: B543ZZA Ultrasonography of Right Jugular Veins, Guidance (ICD-10-PCS; principal; 2021-07-26 09:45)
PROC: 05HM33Z Insertion of Infusion Device into Right Internal Jugular Vein, Percutaneous Approach (ICD-10-PCS; principal; 2021-07-26 09:45)
DX: C34.11 Malignant neoplasm of upper lobe, right bronchus or lung (principal); I10 Essential (primary) hypertension; I25.2 Old myocardial infarction; I25.10 Atherosclerotic heart disease of native coronary artery without angina pectoris; Z87.891 Personal history of nicotine dependence; I48.91 Unspecified atrial fibrillation; J44.9 Chronic obstructive pulmonary disease, unspecified; Z79.01 Long term (current) use of anticoagulants; Z79.899 Other long term (current) drug therapy
CPT/HCPCS: 77001; C1788; J0690; J1100; J1642; J2250; J2370; J2405; J2704; J3010; J7120

== ENCOUNTER → 2021-11-29 | Outpatient (CLI) | payer MEDICARE | END | disposition home or self-care (01) | LOC: LAB SHORT 13:08 | DX: N39.0 Urinary tract infection, site not specified (principal) | CPT/HCPCS: 87077; 87086; 87186 ==

== ENCOUNTER 2021-11-30 18:00 | Inpatient (IN) | payer MEDICARE ==
[~2021-11-30] VITALS: Ht 160 cm; Wt 54.7 kg
[~2021-11-30 18:00] MED LIST changes: +EUTHYROX50 MCG PO; -LEVSOD75 PO; -METO25 PO; +METO25ER PO
[2021-11-30 18:45] LABS: PO2 Arterial 238 mmHg (80-100); pH Blood Arterial 7.21 (7.35-7.45)
[2021-11-30 18:46] LABS: PCO2 Arterial 58.6 mmHg (35-45)
[2021-11-30 18:58] LABS: BASOPHILS ABSOLUTE AUTO 0.05 K/mm3 (0.00-0.23); BASOPHILS PERCENT AUTO 1 % (0-2); EOSINOPHILS ABSOLUTE AUTO 0.14 K/mm3 (0.00-0.68); EOSINOPHILS PERCENT AUTO 1 % (0-6); Hematocrit 32.4 % (33.0-51.0); IMMATURE GRAN ABSOLUTE AUTO 0.05 K/mm3 (0.00-0.10); IMMATURE GRAN PERCENT AUTO 1 % (0-1); LYMPHOCYTES ABSOLUTE AUTO 0.54 K/mm3 (0.84-5.20); LYMPHOCYTES PERCENT AUTO 5 % (21-46); MONOCYTES ABSOLUTE AUTO 0.65 K/mm3 (0.16-1.47); MONOCYTES PERCENT AUTO 6 % (4-13); Mean Corpuscular HGB 31.3 pg (26.0-34.0); Mean Corpuscular Volume 92 fL (80-100); NEUTROPHILS ABSOLUTE AUTO 9.28 K/mm3 (1.96-9.15); NEUTROPHILS PERCENT AUTO 87 % (41-73); Platelet Count 145 K/mm3 (150-400); RDW Coefficient Variation 14.3 % (11.7-14.2); RDW Standard Deviation 48.6 fL (35.1-46.3); Red Blood Cell Count 3.52 M/mm3 (3.80-5.20); White Blood Cell Count 10.71 K/mm3 (4.00-11.30)
[2021-11-30 18:59] LABS: Albumin, Blood 3.6 g/dL (3.4-5.0); Bilirubin, Total 0.8 mg/dL (0.1-1.0); Bun/Creatinine Ratio 24.3 (12.0-20.0); Calcium, Blood 8.6 mg/dL (8.5-10.1); Creatinine, Blood 1.07 mg/dL (0.40-1.00); Globulin, Blood 3.5 g/dL (2.2-4.0); Potassium, Blood 5.1 mmol/L (3.5-5.5); Total Protein, Blood 7.1 g/dL (6.4-8.2)
[2021-11-30 19:25] LABS: Influenza A, PCR NEGATIVE (NEGATIVE); Influenza B, PCR NEGATIVE (NEGATIVE); Resp Syncytial Virus, PCR NEGATIVE (NEGATIVE); SARS-Cov-2 (COVID-19) PCR, MMC NEGATIVE (NEGATIVE)
[2021-11-30] MEDS ORDERED: ALPR.5 PO (22:09)
[2021-11-30 22:59] LABS: Base Excess Venous -4.4 mmol/L; Bicarbonate Venous 20.8 mmol/L (24.0-30.0); PO2 Venous 68.4 mmHg (38-42); pH Blood Venous 7.29 (7.34-7.37)
--- NOTE | 2021-11-30 23:59 | NUR ---
ASSUMPTION OF CARE PT ARRIVED TO ICU FROM ER VIA GURNEY, BIPAP IN PLACE. PT TX TO ICU BED VIA SLIDER SHEET. PT ALERT AND ORIENTED, FOLLOWING ALL COMMANDS. DENIES CP. C/O PAIN ON HER NOSE FROM BIPAP, CONTINUOUSLY ASKING FOR MASK REMOVAL. BIPAP REMOVED AND PT PLACED ON 4LPM O2 VIA NC c SATS >95%. THIS NURSE EXPLAINED TO PT THE NECESSITY OF THE BIPAP BUT PT WILL NOT COMPLY WITH WEARING THE MASK. PT HYPOTENSIVE, LEVOPHED GTT INITIATED VIA MEDIPORT @ 2MCG/MIN, NOW @ 4MCG/MIN FOR MAP GOAL >65. PT ASSISTED TO BEDSIDE COMMODE WITHOUT DIFFICULTY. PT DOES BECOME ANXIOUS AT TIMES, ALSO HAS BASELINE ANXIETY WHICH SHE TAKES ATIVAN FOR. PHYSICIAN NOTIFIED AND REQUESTED ANTIANXIETY MEDS, MEDICATED c HYDROXYZINE. WILL CONTINUE TO MONITOR CLOSELY.
[2021-12-01 03:38] LABS: BASOPHILS ABSOLUTE AUTO 0.01 K/mm3 (0.00-0.23); BASOPHILS PERCENT AUTO 0 % (0-2); EOSINOPHILS PERCENT AUTO 0 % (0-6); Hemoglobin 9.7 g/dL (11.5-16.0); IMMATURE GRAN ABSOLUTE AUTO 0.01 K/mm3 (0.00-0.10); IMMATURE GRAN PERCENT AUTO 0 % (0-1); LYMPHOCYTES ABSOLUTE AUTO 0.18 K/mm3 (0.84-5.20); LYMPHOCYTES PERCENT AUTO 3 % (21-46); MONOCYTES ABSOLUTE AUTO 0.29 K/mm3 (0.16-1.47); MONOCYTES PERCENT AUTO 4 % (4-13); Mean Corpuscular HGB 31.8 pg (26.0-34.0); Mean Corpuscular HGB Conc 34.6 g/dL (31.5-36.5); Mean Corpuscular Volume 92 fL (80-100); Mean Platelet Volume 9.7 fL (9.1-12.4); NEUTROPHILS ABSOLUTE AUTO 6.13 K/mm3 (1.96-9.15); NEUTROPHILS PERCENT AUTO 93 % (41-73); Platelet Count 124 K/mm3 (150-400); RDW Coefficient Variation 14.6 % (11.7-14.2); RDW Standard Deviation 49.2 fL (35.1-46.3); Red Blood Cell Count 3.05 M/mm3 (3.80-5.20); White Blood Cell Count 6.62 K/mm3 (4.00-11.30)
[2021-12-01 03:44] LABS: Base Excess Venous -2.6 mmol/L; Bicarbonate Venous 22.1 mmol/L (24.0-30.0); PCO2 Venous 47.2 mmHg (38-42); pH Blood Venous 7.31 (7.34-7.37)
[2021-12-01 03:53] LABS: Calcium, Blood 8.5 mg/dL (8.5-10.1); Creatinine, Blood 1.12 mg/dL (0.40-1.00); Potassium, Blood 4.7 mmol/L (3.5-5.5)
--- NOTE | 2021-12-01 06:16 | NUR ---
SHIFT SUMMARY PT SLOWLY FEELING BETTER T/O THE NIGHT. ABLE TO TITRATE THE PRESSORS OFF AT THIS TIME, MAP >65. O2 TITRATED DOWN TO 2LPM VIA NC c SATS >90%. PT STATES SHE FEELS MUCH BETTER AND IS VERY HOPEFUL TO GO HOME TODAY. SHE DID WELL WALKING TO COMMODE BUT DOES BECOME DYSPNEIC, RECOVERS FAIRLY WELL WITHOUT NEEDING TO INCREASE THE O2. CURRENTLY DENYING CP. NO OTHER COMPLAINTS OR CONCERNS AT THIS TIME. REPORT TO ONCOMING NURSE.
--- NOTE | 2021-12-01 07:22 | NUR ---
TOOK OVER CARE OF PT AT 0700, PT ON 2LNC.
--- NOTE | 2021-12-01 13:29 | NUR ---
DR. SAWYER NOTIFIED OF RESTARTING LEOPHED, PT MAP WAS 61, HR 110'S, PT STATES FEELING OF ANXIETY AND SOB SIMULAR TO PAST EXPERIENCE OF A ME. ALSO STATES SHE ONLY TAKES HALF OF HER PRESCRIBED DOSE OF ELEQUIS DUE TO NOSE BLEEDS IN THE PAST. STATED WILL COME IN SHORTLY TO SEE PT.
--- NOTE | 2021-12-01 17:19 | NUR ---
SUMMARY PT ALERT/ORIENTED. GENERALIZED ANXIETY AND FEELINGS OF SOB. PT ON 2LNC, 2MCG OF LEVO, 75ML/HR OF NS. TODAY PT HAD AN ECHO COMPLETED, CTPE, TROPONINS TRENDED AND CARIOLOGY CONSULTED
[2021-12-01 19:26] LABS: International Normalized Ratio 1.02; Prothrombin Time Results 10.7 Sec (9.7-11.5)
--- NOTE | 2021-12-01 20:34 | NUR ---
SHIFT ASSESSMENT ASSUMED CARE OF PT @ 1900. PT ALERT AND ORIENTED, SITTING UPRIGHT IN BED. ON 2LPM O2 VIA NC c SATS >95%, REQUESTING BREATHING TREATMENT. RT NOTIFED, TREATMENT GIVEN. PT ASSISTED TO BEDSIDE COMMODE, DID FAIRLY WELL BUT REMAINS DYSPNEIC WITH EXERTION. C/O MODERATE BACK PAIN, MEDICATED c PRN PO PAIN MEDS WITH GOOD RELIEF. PT REMAINS ON LEVOPHED @ 2MCG/MIN c MAP >65. HEPARIN GTT STARTED @ 15U/KG/HR. PT UPDATED ON PLANS FOR ANGIO BUT PT WASN'T AWARE OF THE FACT SHE IS STAYING HERE UNTIL THE PROCEDURE. PT A LITTLE UPSET ABOUT HAVING TO STAY BUT COOPERATIVE WITH CARE.
[2021-12-02 02:20] LABS: BASOPHILS ABSOLUTE AUTO 0.02 K/mm3 (0.00-0.23); BASOPHILS PERCENT AUTO 1 % (0-2); EOSINOPHILS ABSOLUTE AUTO 0.26 K/mm3 (0.00-0.68); EOSINOPHILS PERCENT AUTO 6 % (0-6); Hematocrit 26.2 % (33.0-51.0); IMMATURE GRAN ABSOLUTE AUTO 0.03 K/mm3 (0.00-0.10); IMMATURE GRAN PERCENT AUTO 1 % (0-1); LYMPHOCYTES ABSOLUTE AUTO 0.34 K/mm3 (0.84-5.20); LYMPHOCYTES PERCENT AUTO 8 % (21-46); MONOCYTES ABSOLUTE AUTO 0.41 K/mm3 (0.16-1.47); MONOCYTES PERCENT AUTO 9 % (4-13); Mean Corpuscular HGB 31.5 pg (26.0-34.0); Mean Corpuscular HGB Conc 34.4 g/dL (31.5-36.5); Mean Corpuscular Volume 92 fL (80-100); NEUTROPHILS ABSOLUTE AUTO 3.35 K/mm3 (1.96-9.15); NEUTROPHILS PERCENT AUTO 76 % (41-73); Platelet Count 103 K/mm3 (150-400); RDW Coefficient Variation 14.4 % (11.7-14.2); RDW Standard Deviation 49.2 fL (35.1-46.3); Red Blood Cell Count 2.86 M/mm3 (3.80-5.20); White Blood Cell Count 4.41 K/mm3 (4.00-11.30)
[2021-12-02 02:45] LABS: Albumin, Blood 3.1 g/dL (3.4-5.0); Bilirubin, Total 0.4 mg/dL (0.1-1.0); Bun/Creatinine Ratio 26.7 (12.0-20.0); Calcium, Blood 8.6 mg/dL (8.5-10.1); Creatinine, Blood 1.05 mg/dL (0.40-1.00); Potassium, Blood 4.5 mmol/L (3.5-5.5); Thyroid Stimulating Hormone 0.316 uIU/mL (0.360-4.800); Total Protein, Blood 6.1 g/dL (6.4-8.2)
--- NOTE | 2021-12-02 06:29 | NUR ---
SHIFT SUMMARY PT DID WELL T/O THE NIGHT EVEN THOUGH SHE WAS NOT ABLE TO SLEEP MUCH SHE IS NERVOUS ABOUT THE PROCEDURE. PT MEDICATED WITH ANTI-ANXIETY MEDS WHICH SEEMED TO WORK FOR A FEW HOURS. LEVOPHED TITRATED DOWN TO 1MCG/MIN DURING NIGHT, NOW ON SB c MAP >65. SUPPLEMENTAL O2 TITRATED DOWN TO 1LPM VIA NC c SATS REMAINING >90%. PT CONTINUES TO DENY CP. NO OTHER ACUTE CHANGES. REPORT TO ONCOMING NURSE.
--- NOTE | 2021-12-02 07:21 | NUR ---
TOOK OVER CARE OF PT AT 0715, PT RESTING ON 2L NC, 1MCG OF LEVOPHED AND 18UNITS OF HEPARIN INFUSING.
--- NOTE | 2021-12-02 07:54 | NUR ---
DR. SAWYER NOTIFIED OF NO SPUTUM OR URINE CULTURE ORDERED, PLATLETS DECREASING FROM 145 TO 13, HR INCREASING TO ABOVE 130, WBC DROPPING 10.71 TO 4.41. RN REQUESTING SPUTUM AND URINE CULTURES, NEUTROPENIC PRECAUTIONS, HIT PANEL AND MIDODRINE. NO NEW ORDERS. 08Maximus- SILVERIO NOTIFIED OF HR 159
--- NOTE | 2021-12-02 08:22 | NUR ---
PT HR UP TO 170'S, STOPPED LEVOPHED GTT, STARTED 250ML FLUID BOLUS PER
--- NOTE | 2021-12-02 09:27 | NUR ---
NOTIFIED OF HR OF 187, ORDERS PLACED
--- NOTE | 2021-12-02 15:34 | NUR ---
SUMMARY NEURO- WNL CARDIAC-RVR WITH A HR OF 187 (250ML BOLUS, INCREASED CONTINUOUS INFUSION TO 100ML/HR, 5MG IV METOPROLOL GIVEN, LEVO STOPPED WITH MAP GOAL DECREASED TO >55, PO METOPROLOL AND MIDODRINE STARTED), ST DEPRESSION, HEPARIN INFUSION INCREASED TO 21 UNITS. FAINT PULSES THROUGHOUT. AFTER MEDS ADMINISTERED PT HR DOWN TO 80'S-90'S. LUNGS: INTERMITTENT END RESPIRATORY WHEEZES IN NANO LOBE, BILAT. UPPER LOBES OTHERWISE CLEAR, DIMINISHED BASES. HX LUNG CA, CTPE STUDY NEGATIVE. SKIN:WNL GI:WNL :WNL
--- NOTE | 2021-12-02 18:18 | NUR ---
PT ASYMPTOMATIC WITH LOW MAPS IN THE 60'S-55. ALL AVAILABLE BLOOD PRESSURE CUFFS TOO LARGE FOR PT. REQUESTING PEDIATRIC BP CUFF FROM ER
--- NOTE | 2021-12-02 20:38 | NUR ---
SHIFT ASSESSMENT ASSUMED CARE OF PT @ 1900. PT ALERT AND ORIENTED, SITTING UPRIGHT IN BED WATCHING TV. DENIES CP OR SOB AT THIS TIME, ON 2LPM O2 VIA NC. LEVOPHED REMAINS OFF, MAP >55. NSR ON THE WOOD BOX MAKER. HEPARIN INFUSING @ 23U/KG/HR. NO COMPLAINTS OR CONCERNS FROM PT AT THIS TIME.
--- NOTE | 2021-12-03 06:08 | NUR ---
SHIFT SUMMARY PT DOING WELL FOR MOST OF THE NIGHT. AROUND 0530 THIS MORNING PT WAS UP TO BEDSIDE COMMODE SHE HAS BEEN DOING T/O THE NIGHT WITHOUT ISSUE. PT WENT INTO RESPIRATORY DISTRESS SHE GOT BACK IN BED. THIS NURSE CALLED INTO ROOM BY ULTIMATE HOOPS TRAINER. PT SITTING ON EDGE OF THE BED IN TRIPOD POSITION, RR IN THE 40'S, HR IN 140-170'S, LS TIGHT T/O. RT NOTIFIED FOR STAT BREATHING TREATMENT AND HOSPITALIST CALLED, 125MG SOLU-MEDROL GIVEN. PT REMAINED DYSPNEIC, PLACED ON BIPAP- 12/5 @ 55% AND GIVEN 0.5MG ATIVAN TO ASSIST WITH BIPAP COMPLIANCE. PT NOW RESTING WITH BIPAP ON, UNABLE TO OBTAIN AN ACCURATE PULSE OXIMETRY. PT STATING SHE IS NOT LONGER SHORT OF BREATH BUT LUNG SOUNDS REMAIN DIMINSHED T/O.
[2021-12-03 07:37] LABS: BASOPHILS ABSOLUTE AUTO 0.01 K/mm3 (0.00-0.23); BASOPHILS PERCENT AUTO 0 % (0-2); EOSINOPHILS ABSOLUTE AUTO 0.11 K/mm3 (0.00-0.68); EOSINOPHILS PERCENT AUTO 3 % (0-6); Hematocrit 24.9 % (33.0-51.0); Hemoglobin 8.3 g/dL (11.5-16.0); IMMATURE GRAN ABSOLUTE AUTO 0.02 K/mm3 (0.00-0.10); IMMATURE GRAN PERCENT AUTO 1 % (0-1); LYMPHOCYTES ABSOLUTE AUTO 0.11 K/mm3 (0.84-5.20); LYMPHOCYTES PERCENT AUTO 3 % (21-46); MONOCYTES ABSOLUTE AUTO 0.15 K/mm3 (0.16-1.47); MONOCYTES PERCENT AUTO 4 % (4-13); Mean Corpuscular HGB 31.2 pg (26.0-34.0); Mean Corpuscular HGB Conc 33.3 g/dL (31.5-36.5); Mean Corpuscular Volume 94 fL (80-100); Mean Platelet Volume 10.2 fL (9.1-12.4); NEUTROPHILS ABSOLUTE AUTO 3.41 K/mm3 (1.96-9.15); NEUTROPHILS PERCENT AUTO 90 % (41-73); Platelet Count 87 K/mm3 (150-400); RDW Coefficient Variation 14.6 % (11.7-14.2); RDW Standard Deviation 50.5 fL (35.1-46.3); Red Blood Cell Count 2.66 M/mm3 (3.80-5.20); White Blood Cell Count 3.81 K/mm3 (4.00-11.30)
--- NOTE | 2021-12-03 07:38 | NUR ---
Received report from Abebe TIDWELL. Patient sitting up in bed alert and oiented and able to communicate her needs. She is on BiPAP 12/5 55% and sats 100%, RT in room working with patient jessica. She has mediport right chest for her lung CA and is infusing levophed at 2 mcg/min and NS TKO. She also has 20ga PowerGlide to JULIANNA and is infusing Heparin at 24 units/kg/hr. MAEW. Systolic in the 70 and MAP> 65. Dr Gregory in room talking about am cath procedure.
[2021-12-03 07:48] LABS: Hematocrit 24.4 % (33.0-51.0); Hemoglobin 8.4 g/dL (11.5-16.0); Mean Platelet Volume 10.4 fL (9.1-12.4); Platelet Count 87 K/mm3 (150-400)
[2021-12-03 07:52] LABS: Albumin, Blood 2.8 g/dL (3.4-5.0); Bilirubin, Total 0.3 mg/dL (0.1-1.0); Bun/Creatinine Ratio 18.6 (12.0-20.0); Calcium, Blood 8.1 mg/dL (8.5-10.1); Creatinine, Blood 1.13 mg/dL (0.40-1.00); Globulin, Blood 2.9 g/dL (2.2-4.0); Potassium, Blood 4.1 mmol/L (3.5-5.5); Total Protein, Blood 5.7 g/dL (6.4-8.2)
--- NOTE | 2021-12-03 09:30 | NUR ---
PTT was >[address] Tse was in room and asked if we could repeat r/t cath procedure in 1 hour and sharath stated yes and came back within limits. Placed 16Fr Moody julita is draining to gravityclear urine. [facility] came to front office supervisor patient for angio. Levophed at 2 mcg/min, Heparin 24 units/kg/hr, and NS TKO. She was transferred on 2L O2 via NC and sats >95%.
--- NOTE | 2021-12-03 12:34 | NUR ---
RETURN FROM PSYCHOLOGIST CLINICAL PT RETURNS FROM PSYCHOLOGIST CLINICAL. LEVO REMAINS AT 2MCG/MIN. HEPARIN OFF PER PSYCHOLOGIST CLINICAL STAFF. PT HAD 2 STENTS PLACED IN MID AND PROX RCA. DENIES CP,SOB. DISTAL CSM INTACT. BILATERAL ART SHEATHS IN PLACE. PLAN TO PULL HERE ONCE BACK PAIN BETTER MANAGED.
--- NOTE | 2021-12-03 13:26 | NUR ---
Patient bilateral groin site C/D/I, no bleeding and or oozing , soft and palpable. levophed reduced to 1 mcg/min. patient reverse trendellenberg position eating snacks.
--- NOTE | 2021-12-03 15:26 | NUR ---
Left groin sheath pulled and pressure held for 20 minutes. José dressing placed and have rechecked several times and no oozing or hematoma and verified by Mayank Rn. Patients systolic remains low with MAP >65. Patients right sheath remains in place and will pull in one hour.
--- NOTE | 2021-12-03 16:45 | NUR ---
Right groin sheath pulled and held for 20 minutes and placed José dressing over and will continue to evaluate both sites. Right groin soft and palpable, no oozing or hematoma. Remains on several liters O2 via NC and sats >95%. She continues to be hypotensive MAPS >65. She remains alert and oiented and able to communicate her needs.
--- NOTE | 2021-12-03 17:58 | NUR ---
Patient HOB at 20 degrees eating dinner and tolerated PO meds. Bilateral sheath groin sites WNL's and no oozing or hematoma. Sites covered with leigh dressing and clear opsite. Alert and oiented and able to communicate needs. Levophed infusing at 1 mcg/min and NS TKO.
--- NOTE | 2021-12-03 20:11 | NUR ---
ASSUMED CARE OF PATIENT AT 1900, SHE DENIES ANY DISCOMFORT AT THIS TIME. BILAT GROIN SITE C/D/I WITH CLEAR DRESSING NO PALPABLE HEMATOMA NOTED. GOOD PERIPHER AL PULSES, <3 SEC CAP REFILL. BP LOW, LEVO UP TO 2 MCG/MIN WILL CONTINUE TO MONITOR. NOTED THAT THE NOTES INDICATED MAP>55 WAS ACCEPTABLE. LUNGS DIMINISHED, PT ON 2L/NC, HEART RATE LOW 100'S. STARING OUT WINDOW.
--- NOTE | 2021-12-04 04:12 | NUR ---
MISS SY AWAKENS, STATES THAT SHE HAS SLEPT WELL AND IS LOOKING FORWARD TO POTENTIALLY GOING HOME THIS AFTERNOON. SHE IS WITHOUT ANY COMPLAINTS, HER LEVOPHED IS ON SB AND HER CURRENT BP 108/66. HEART RATE 81, SATS 98%. THOMAS WITH GOOD OUTPUT,DRINKING WATER WITHOUT INCIDENT, OCC COUGH NOTED.
[2021-12-04 04:13] LABS: BASOPHILS ABSOLUTE AUTO 0.01 K/mm3 (0.00-0.23); BASOPHILS PERCENT AUTO 0 % (0-2); EOSINOPHILS ABSOLUTE AUTO 0.07 K/mm3 (0.00-0.68); EOSINOPHILS PERCENT AUTO 3 % (0-6); Hemoglobin 7.4 g/dL (11.5-16.0); IMMATURE GRAN ABSOLUTE AUTO 0.02 K/mm3 (0.00-0.10); IMMATURE GRAN PERCENT AUTO 1 % (0-1); LYMPHOCYTES PERCENT AUTO 7 % (21-46); MONOCYTES ABSOLUTE AUTO 0.27 K/mm3 (0.16-1.47); MONOCYTES PERCENT AUTO 10 % (4-13); Mean Corpuscular HGB 31.4 pg (26.0-34.0); Mean Corpuscular HGB Conc 33.6 g/dL (31.5-36.5); Mean Corpuscular Volume 93 fL (80-100); Mean Platelet Volume 9.5 fL (9.1-12.4); NEUTROPHILS ABSOLUTE AUTO 2.23 K/mm3 (1.96-9.15); NEUTROPHILS PERCENT AUTO 80 % (41-73); Platelet Count 101 K/mm3 (150-400); RDW Coefficient Variation 14.6 % (11.7-14.2); Red Blood Cell Count 2.36 M/mm3 (3.80-5.20)
[2021-12-04 04:34] LABS: Albumin, Blood 2.7 g/dL (3.4-5.0); Bilirubin, Total 0.4 mg/dL (0.1-1.0); Bun/Creatinine Ratio 20.6 (12.0-20.0); Calcium, Blood 8.6 mg/dL (8.5-10.1); Creatinine, Blood 1.07 mg/dL (0.40-1.00); Globulin, Blood 2.8 g/dL (2.2-4.0); Potassium, Blood 4.4 mmol/L (3.5-5.5); Total Protein, Blood 5.5 g/dL (6.4-8.2)
--- NOTE | 2021-12-04 05:27 | NUR ---
MS SY IS SITTING UP IN BED, JUST FINISHED HER MORNING CLEAN UP, BRUSHED HER TEETH, WASHED HER FACE AND BODY, COMBED HER HAIR AND IS DRINKING HER CUP OF COFFEE. SHE DENIES ANY COMPLAINTS AT THIS TIME. SHE IS STILL OFF THE LEVO WITH BP 111/72, HEART RATE 76, SATS 98%. COUGH OCC. WATCHING TV.
--- NOTE | 2021-12-04 07:01 | NUR ---
Received report from Yisel TIDWELL. patient sitting up in bed watching TV. She is alert and oriented and is able to communicate her needs. She is on 2L O2 via NC and sats >95%. She has been up out of bed to [facility] and will pull jones shortly. Bilateral groin site WNL's and are soft and palpable with no oozing or hematoma's. She MAEW. She has mediport to right chest infusing NS TKO and 20ga PowerGlide in JULIANNA flushed and SL'd.
--- NOTE | 2021-12-04 09:35 | NUR ---
Patient up to bathroom with out ant difficulty or VS change. She tolerated am meds and breakfast without difficulty. Dr Tse by and is keeping her here for another day. Pulled robert.
--- NOTE | 2021-12-04 11:17 | NUR ---
Patient is me with tele and awaiting room. She has tolerated getting up with SBA to bathroom. Systolic 90-100's, RA sats >90%. Dr Gregory was just in room and possible discharge tomorrow. Bilateral groin sites WNL's.
--- NOTE | 2021-12-04 13:35 | NUR ---
Patient been resting in and calls appropriately. Systolic in the 100's and remains on 2L O2 via NC. No further changes.
--- NOTE | 2021-12-04 16:26 | NUR ---
Patient being transferred to surg 210. Called report and she and her belongings were taken over by wheelchair. She remaisn on 2L O2 via NC and has NS TKO infusing to JULIANNA. She remains alert and oriented and able to communicate her needs.
--- NOTE | 2021-12-04 16:36 | NUR ---
REPORT RECEIVED FROM ARTI CHERY RN. PATIENT ARRIVED TO UNIT APPROX 1615. ARRIVED IN W/C & TRANSFERRED INDEPENDENTLY TO BED. VSS, O2 SATS >92% ON 2L O2 VIA NC. PATIENT DENIES CP, SOB, N/T. BILATERAL GROIN SITES FORM STENT PLACEMENTS APPEAR WNL W/ GAUZE & TEGADERM DRESSINGS. PATIENT VERY PLEASANT, RESTING IN BED WATCHING TV. ORIENTED TO ROOM & CALL LIGHT IN REACH.
--- NOTE | 2021-12-04 18:39 | NUR ---
NO CHANGES SINCE ARRIVAL. INDEPENDENT TO THE BATHROOM IN ROOM. 2L O2 REMAINS IN PLACE. RESTING IN BED, CALL LIGHT IN REACH. WILL REPORT TO ONCOMING RN.
--- NOTE | 2021-12-05 06:23 | NUR ---
PT REP HAVINGSLEPT WELL T/O NIGHT. AWOKE THIS AM FEELING SOB, REP IMPROVED AFTER PRN RT TX. 2LO2 IN PLACE. HR SINUS TACH 90-LOW 100'S. PT AMB INDEP IN ROOM, STEVAN WELL.
--- NOTE | 2021-12-05 19:31 | NUR ---
SHIFT SUMMARY NO ACUTE CHANGES THIS SHIFT. VSS, ON 2L O2 VIA NC, SATS >92%. INDEPENDENT TO BATHROOM IN ROOM. USES CALL LIGHT APPROPRIATELY, WITHIN REACH. WILL REPORT TO ONCOMING RN.
--- NOTE | 2021-12-06 05:51 | NUR ---
STOCK FITTER SUMMARY PT AAOX4 AND PLEASANT. HR HAS BEEN BETTER CONTROLLED TONIGHT WITH NO DOSE OF METOPROLOL. HR 70'S TO 80'S ON TELEMETRY. PT HAS SLEPT WELL AND DENIES ANY CP/PRESSURE. VITALS STABLE, WILL CONTINUE TO MONITOR.
[2021-12-06 07:20] LABS: BASOPHILS ABSOLUTE AUTO 0.01 K/mm3 (0.00-0.23); BASOPHILS PERCENT AUTO 0 % (0-2); EOSINOPHILS ABSOLUTE AUTO 0.27 K/mm3 (0.00-0.68); EOSINOPHILS PERCENT AUTO 9 % (0-6); Hematocrit 29.6 % (33.0-51.0); Hemoglobin 9.8 g/dL (11.5-16.0); IMMATURE GRAN ABSOLUTE AUTO 0.01 K/mm3 (0.00-0.10); IMMATURE GRAN PERCENT AUTO 0 % (0-1); LYMPHOCYTES ABSOLUTE AUTO 0.31 K/mm3 (0.84-5.20); LYMPHOCYTES PERCENT AUTO 10 % (21-46); MONOCYTES ABSOLUTE AUTO 0.25 K/mm3 (0.16-1.47); MONOCYTES PERCENT AUTO 8 % (4-13); Mean Corpuscular HGB Conc 33.1 g/dL (31.5-36.5); Mean Corpuscular Volume 94 fL (80-100); Mean Platelet Volume 10.3 fL (9.1-12.4); NEUTROPHILS ABSOLUTE AUTO 2.21 K/mm3 (1.96-9.15); NEUTROPHILS PERCENT AUTO 72 % (41-73); Platelet Count 127 K/mm3 (150-400); RDW Coefficient Variation 14.6 % (11.7-14.2); RDW Standard Deviation 50.2 fL (35.1-46.3); Red Blood Cell Count 3.16 M/mm3 (3.80-5.20); White Blood Cell Count 3.06 K/mm3 (4.00-11.30)
--- NOTE | 2021-12-06 07:20 | NUR ---
TOOK OVER CARE OF PT AT 0705, PT RESTING ON CPAP, 4MCG OF LEVO AND .4 OF PRECEDEX INFUSING.
[2021-12-06 07:39] LABS: Albumin, Blood 3.3 g/dL (3.4-5.0); Albumin/Globulin Ratio 0.9 (0.8-1.8); Bilirubin, Total 0.6 mg/dL (0.1-1.0); Bun/Creatinine Ratio 19.1 (12.0-20.0); Calcium, Blood 8.9 mg/dL (8.5-10.1); Creatinine, Blood 0.99 mg/dL (0.40-1.00); Globulin, Blood 3.5 g/dL (2.2-4.0); Potassium, Blood 4.3 mmol/L (3.5-5.5); Total Protein, Blood 6.8 g/dL (6.4-8.2)
[2021-12-06] MEDS ORDERED: CLOP75 PO (11:17)
[2021-12-06] MEDS ORDERED: METO50ER PO (11:18)
--- NOTE | 2021-12-06 13:46 | NUR ---
DISCHARGE: PACKET PRINTED AND PT EDUCATED. IV DC'D WNL. PT HAS HOME/PORTABLE 02 WITH HER AND IS USING UPON DISCHARGE. SCRIPTS FAXED TO [facility]. PT LEFT UNIT VIA WHEELCHAIR AT ABOUT 1130 WITH BELL GARCIA.
== END 2021-12-06 12:00 | disposition home or self-care (01) | DRG 853 ==
LOC: ER 18:00 → ICUE 21:35 → ER 21:35 → ICUE 21:50 → ICUW 21:50 → ICUE 21:55 → SURS 12-04 17:26
PROVIDERS: Internal Medicine; Internal Medicine Cardiovascular Disease; Student in an Organized Health Care Education/Training Program; ADMIT Family Medicine
PROC: 3E03329 Introduction of Other Anti-infective into Peripheral Vein, Percutaneous Approach (ICD-10-PCS; 2021-11-30)
PROC: 3E033XZ Introduction of Vasopressor into Peripheral Vein, Percutaneous Approach (ICD-10-PCS; 2021-11-30)
PROC: 027035Z Dilation of Coronary Artery, One Artery with Two Drug-eluting Intraluminal Devices, Percutaneous Approach (ICD-10-PCS; principal; 2021-12-03)
PROC: 4A023N7 Measurement of Cardiac Sampling and Pressure, Left Heart, Percutaneous Approach (ICD-10-PCS; 2021-12-03)
PROC: B2111ZZ Fluoroscopy of Multiple Coronary Arteries using Low Osmolar Contrast (ICD-10-PCS; 2021-12-03)
PROC: 02F03ZZ Fragmentation in Coronary Artery, One Artery, Percutaneous Approach (ICD-10-PCS; 2021-12-03)
DX: A41.51 Sepsis due to Escherichia coli [E. coli] (principal); R65.21 Severe sepsis with septic shock; R57.0 Cardiogenic shock; I21.4 Non-ST elevation (NSTEMI) myocardial infarction; J96.21 Acute and chronic respiratory failure with hypoxia; J96.22 Acute and chronic respiratory failure with hypercapnia; J18.9 Pneumonia, unspecified organism; N39.0 Urinary tract infection, site not specified; C34.91 Malignant neoplasm of unspecified part of right bronchus or lung; C91.10 Chronic lymphocytic leukemia of B-cell type not having achieved remission; I50.22 Chronic systolic (congestive) heart failure; E87.1 Hypo-osmolality and hyponatremia; I13.0 Hypertensive heart and chronic kidney disease with heart failure and stage 1 through stage 4 chronic kidney disease, or unspecified chronic kidney disease; Z66 Do not resuscitate; Z20.822 Contact with and (suspected) exposure to COVID-19; R73.9 Hyperglycemia, unspecified; I25.10 Atherosclerotic heart disease of native coronary artery without angina pectoris; I27.20 Pulmonary hypertension, unspecified; D69.6 Thrombocytopenia, unspecified; I48.0 Paroxysmal atrial fibrillation; J43.9 Emphysema, unspecified; D63.0 Anemia in neoplastic disease; E78.5 Hyperlipidemia, unspecified; E03.9 Hypothyroidism, unspecified; N18.30 Chronic kidney disease, stage 3 unspecified; F32.A Depression, unspecified; F41.9 Anxiety disorder, unspecified; G89.4 Chronic pain syndrome; M54.16 Radiculopathy, lumbar region; K21.9 Gastro-esophageal reflux disease without esophagitis; Z88.1 Allergy status to other antibiotic agents; Z88.5 Allergy status to narcotic agent; Z79.01 Long term (current) use of anticoagulants; Z79.899 Other long term (current) drug therapy; Z87.891 Personal history of nicotine dependence
CPT/HCPCS: 0241U; 36415; 36600; 51702; 71045; 71260; 76937; 80048; 80053; 82803; 83605; 83880; 84100; 84145; 84443; 84484; 85014; 85018; 85025; 85049; 85347; 85610; 85730; 87040; 93005; 93010; 93306; 93454; 94640; 94660; 94664; 94760; 94761; 94762; 96365; 96375; 99152; 99153; 99285-25; A9270; C1725; C1751; C1761; C1769; C1874; C1887; C1894; C9600; C9602; G0278; J0456; J0696; J1642; J1644; J1940; J2060; J2250; J2543; J2930; J3010; J3370; J7030; J7040; J7050; J7060; J7120; Q9967

== ENCOUNTER 2021-12-07 19:52 | Inpatient (IN) | payer MEDICARE ==
[~2021-12-07] VITALS: Ht 160 cm; Wt 54.8 kg
[~2021-12-07 19:52] MED LIST changes: +CLOP75 PO; +METO50ER PO
[2021-12-07 20:27] LABS: BASOPHILS ABSOLUTE AUTO 0.01 K/mm3 (0.00-0.23); BASOPHILS PERCENT AUTO 0 % (0-2); EOSINOPHILS ABSOLUTE AUTO 0.11 K/mm3 (0.00-0.68); EOSINOPHILS PERCENT AUTO 2 % (0-6); Hematocrit 27.8 % (33.0-51.0); Hemoglobin 9.6 g/dL (11.5-16.0); IMMATURE GRAN ABSOLUTE AUTO 0.02 K/mm3 (0.00-0.10); IMMATURE GRAN PERCENT AUTO 0 % (0-1); LYMPHOCYTES PERCENT AUTO 2 % (21-46); MONOCYTES ABSOLUTE AUTO 0.33 K/mm3 (0.16-1.47); MONOCYTES PERCENT AUTO 6 % (4-13); Mean Corpuscular HGB 31.6 pg (26.0-34.0); Mean Corpuscular HGB Conc 34.5 g/dL (31.5-36.5); Mean Corpuscular Volume 91 fL (80-100); Mean Platelet Volume 9.8 fL (9.1-12.4); NEUTROPHILS ABSOLUTE AUTO 5.09 K/mm3 (1.96-9.15); NEUTROPHILS PERCENT AUTO 90 % (41-73); Platelet Count 134 K/mm3 (150-400); RDW Coefficient Variation 14.7 % (11.7-14.2); RDW Standard Deviation 48.7 fL (35.1-46.3); Red Blood Cell Count 3.04 M/mm3 (3.80-5.20); White Blood Cell Count 5.66 K/mm3 (4.00-11.30)
[2021-12-07 20:49] LABS: Albumin, Blood 3.6 g/dL (3.4-5.0); Albumin/Globulin Ratio 1.1 (0.8-1.8); Bilirubin, Total 0.7 mg/dL (0.1-1.0); Bun/Creatinine Ratio 22.2 (12.0-20.0); Calcium, Blood 8.8 mg/dL (8.5-10.1); Creatinine, Blood 1.17 mg/dL (0.40-1.00); Globulin, Blood 3.4 g/dL (2.2-4.0); Potassium, Blood 4.3 mmol/L (3.5-5.5)
[2021-12-07 21:00] LABS: Influenza A, PCR NEGATIVE (NEGATIVE); Influenza B, PCR NEGATIVE (NEGATIVE); Resp Syncytial Virus, PCR NEGATIVE (NEGATIVE); SARS-Cov-2 (COVID-19) PCR, MMC NEGATIVE (NEGATIVE)
[2021-12-07 22:10] LABS: Source, Urine Clean Catch
[2021-12-07 22:13] LABS: Bilirubin, Urine Neg (Neg); Blood, Urine Neg (Neg); Glucose Qualitative, Urine Neg (Neg); Ketones, Urine 1+ (Neg); Leukocyte Esterase, Urine 1+ (Neg); Nitrite, Urine Neg (Neg); Protein, Urine 2+ (Neg); Specific Gravity, Urine 1.025 (1.003-1.022); Urobilinogen, Urine NORM (Normal)
[2021-12-07 22:23] LABS: Appearance, Urine Hazy (Clear); Color, Urine Yellow (P-Yellow)
[2021-12-07 22:24] LABS: Amorphous Light (0-Heavy); Bacteria Mod /hpf; Mucus Light (0-Heavy); Squamous Epithelial Cells Few /hpf (Few)
--- NOTE | 2021-12-08 03:02 | NUR ---
ARRIVAL TO ICU PT ARRIVED TO ICU 14 AT 2345 VIA ED BED AND TRANSFERED TO ICU BED VIA SLIDE SHEET. PT IS ALERT/ORIENTED X4 AND ABLE TO MAKE HER NEEDS KNOW. NO C/O DYSPNEA, CURRENTLY ON 4L NC WITH SPO2 >98%, BASELINE WEARS 2L NC AT HOME. TEMP 99.9. HR 80'S. SBP 80-100, MAP 60-65; LEVOPHED TITRATED UP TO 8MCG/MIN, MAP NOW >65. SEE ADMISSION ASSESSMENT FOR FULL ASSESSMENT. CALLED DR NAEL DAILY LOWER BACK PAIN PT IS HAVING RATING 5/10. NEW ORDERS FOR PRN FENTANYL PROVIDED; PRN GIVEN AND HELPFUL. ALSO INFORMED HIM THAT PT HAS A MEDIPORT THAT HAS NOT BEEN ACCESSES. WAS GIVEN VERBAL PERMISSION TO ACCESS MEDIPORT ON RT CHEST INSTEAD OF PLACING CENTRAL LINE. MEDIPORT ACCESSESED WITH 20G 3/4" STERILE SET, HAD BLOOD RETURN AND FLUSHED. TEGADERM DRESSING PLACED OVER ACCESS.
[2021-12-08 05:08] LABS: BASOPHILS ABSOLUTE AUTO 0.01 K/mm3 (0.00-0.23); BASOPHILS PERCENT AUTO 0 % (0-2); EOSINOPHILS ABSOLUTE AUTO 0.13 K/mm3 (0.00-0.68); EOSINOPHILS PERCENT AUTO 3 % (0-6); Hematocrit 23.5 % (33.0-51.0); Hemoglobin 8.1 g/dL (11.5-16.0); IMMATURE GRAN ABSOLUTE AUTO 0.01 K/mm3 (0.00-0.10); IMMATURE GRAN PERCENT AUTO 0 % (0-1); LYMPHOCYTES PERCENT AUTO 2 % (21-46); MONOCYTES ABSOLUTE AUTO 0.32 K/mm3 (0.16-1.47); MONOCYTES PERCENT AUTO 7 % (4-13); Mean Corpuscular HGB 31.8 pg (26.0-34.0); Mean Corpuscular HGB Conc 34.5 g/dL (31.5-36.5); Mean Corpuscular Volume 92 fL (80-100); Mean Platelet Volume 9.9 fL (9.1-12.4); NEUTROPHILS ABSOLUTE AUTO 4.12 K/mm3 (1.96-9.15); NEUTROPHILS PERCENT AUTO 88 % (41-73); Platelet Count 112 K/mm3 (150-400); RDW Coefficient Variation 15.4 % (11.7-14.2); RDW Standard Deviation 50.9 fL (35.1-46.3); Red Blood Cell Count 2.55 M/mm3 (3.80-5.20); White Blood Cell Count 4.69 K/mm3 (4.00-11.30)
[2021-12-08 05:36] LABS: Albumin, Blood 2.9 g/dL (3.4-5.0); Albumin/Globulin Ratio 0.9 (0.8-1.8); Bilirubin, Total 0.8 mg/dL (0.1-1.0); Creatinine, Blood 1.09 mg/dL (0.40-1.00); Globulin, Blood 3.1 g/dL (2.2-4.0); Potassium, Blood 3.9 mmol/L (3.5-5.5)
[2021-12-08 05:41] LABS: CPK Creatine Kinase 56 U/L (26-193)
--- NOTE | 2021-12-08 06:14 | NUR ---
END OF SHIFT SUMMARY NO ACUTE EVENTS SINCE ARRIVAL TO ICU. PT IS A/O X4 AND ABLE TO MAKE HER NEEDS KNOWN; WAS ABLE TO SLEEP ABOUT 4HOURS. SPO2 >98% ON 4L NC; NO C/O DYSPNEA OR CP. AFEBRILE. HR 80-90'S.S BP 100-120. MAP >65 WITH LEVOPHED TITRATED DOWN TO 4MCG/MIN. PT ABLE TO AMBULATE TO TOILET WITH ONE PERSON ASSIST FOR CORD MANAGEMENT. MEDIPORT TO RT CHEST WALL DRESSING C/D/I. NS INFUSING AT 100ML/HR. WILL REPORT TO AM RN WHEN AVAILABLE.
--- NOTE | 2021-12-08 08:00 | NUR ---
PT A&OX4. REPORTS 5/10 LOW BACK PAIN. MED WITH FENTANYL 25 MCG IVP X 1-SEE EMAR. TEMP 99.7. ECG SHOWS AF WITH RATE 90-120'S. MAP TRENDING >65 WITH LEVOPHED @ 4 MCG/MIN. PT DENIES CP. LUNGS DIMINISHED AND TIGHT. AUDIBLY WZ AT TIMES. SATS>90% ON 4 LITERS NASAL CANULA. SOB WITH EXERTION. PT DENIES GI DISTRESS. SKIN IS PALE AND FRAIL. [facility]- INFUSING NS @ 100 CC/HR. BILATERAL GROIN SITES BRUISED, BUT HEALING. SKIN IS PALE AND FRAIL, BUT NO NOTED SKIN BREAKDOWN. PT ABLE TO COMMUNICATE NEEDS WELL-CALL LIGHT WITHIN REACH.
--- NOTE | 2021-12-08 09:45 | NUR ---
SBP TRENDING 120'S AND MAP 70'S-LEVOPHED TITRATED DOWN TO 2 MCG/MIN.
--- NOTE | 2021-12-08 12:00 | NUR ---
PT MAINTAINS MAP 65-70'S ON LEVOPHED @ 2 MCG/MIN. HR 90'S ST. PT SOB WITH EXERTION, BUT MAINTAINS SATS>90% ON 4 LITERS NASAL CANULA. PT ATE 90% OF CARDIAC LUNCH TRAY WITHOUT DIFFICULTY. ASSISTED UP TO BRP-PT VOIDED 200 CC DARK, YELLOW URINE. SHE REPORTS URGENCY, BUT NO DYSURIA. PT REPORTS 4/10 LOW BACK PAIN. MED WITH FENTANYL 50 MCG IVP X 1-SEE EMAR. PT STATES THAT SHE WOULD LIKE TO TAKE A NAP-CALL LIGHT WITHIN REACH.
[2021-12-08 12:46] LABS: CPK Creatine Kinase 54 U/L (26-193)
--- NOTE | 2021-12-08 16:00 | NUR ---
PT REPORTS 4/10 LOW BACK PAIN. MED WITH FENTANYL 50 MCG IVP X 1-SEE EMAR. LUNGS WITH EXPIRATORY WHEEZES. UDN REQUESTED. SOB WITH EXERTION OOB TO BRP. MAINTAINS SATS>90% ON 4 LITERS NASAL CANULA. SOB RESOLVES AFTER SEVERAL MINUTES REST.PT REMAINS OFF OF LEVOPHED DRIP AND MAP TRENDING 65-70. NS CONTINUES @ 150 CC/HR.
--- NOTE | 2021-12-08 18:00 | NUR ---
PT HAS REMAINED OFF OF LEVOPHED SINCE 1400. MAP TRENDING 65-70'S. NO NOTED AUDIBLE WZ OR SOB SINCE UDN GIVEN. SATS>90% ON 4 LITERS NASAL CANULA. PT APPETITE IS VERY GOOD AND CURRENTLY, SHE DENIES COMPLAINTS- GIVEN UPDATE-NS DECREASED TO 75 CC/HR.
--- NOTE | 2021-12-08 21:03 | NUR ---
ASSUMED CARE AT 1900 PT LAYING IN BED WATCHING TV. PT IS PLEASENT, ALERT/ORIENTED X4, ABLE TO MAKE HER NEEDS KNOWN, AND USES CALL LIGHT APPROPRIATLY. PT C/O LOWER BACK AND HIP PAIN CAUSED BY THE HOSPITAL BED; PRN FENTANYL AVAILABLE, GIVEN AND HELPFUL. SPO2 >98% ON 3L NC; EXPIRATORY WHEEZES NOTED AFTER AMBULATING, CALLED HOSPITALIST DUE TO [facility] NOT BEGING AVIALABLE YET, NEW ORDERS CHANGED AND ALBUTEROL NEB ORDER PROVIDED PRN Q2HR; RT GAVE TREATMENT AND PT WHEEZES ARE IMPROVED. AFEBRILE. HR 80'S. SBP 90-100; MAP 65-70, LEVOPHED OFF. PT AMBULATES TO THE TOILET WITH ONE PERSON ASSIST FOR CORD MANAGMENT. NS INFUSING AT 25ML/HR. SEE SHIFT ASSESSMENT FOR FULL ASSESSMENT.
[2021-12-09 04:08] LABS: BASOPHILS ABSOLUTE AUTO 0.01 K/mm3 (0.00-0.23); BASOPHILS PERCENT AUTO 1 % (0-2); EOSINOPHILS ABSOLUTE AUTO 0.12 K/mm3 (0.00-0.68); EOSINOPHILS PERCENT AUTO 6 % (0-6); Hematocrit 19.4 % (33.0-51.0); Hemoglobin 6.6 g/dL (11.5-16.0); IMMATURE GRAN ABSOLUTE AUTO 0.01 K/mm3 (0.00-0.10); IMMATURE GRAN PERCENT AUTO 1 % (0-1); LYMPHOCYTES ABSOLUTE AUTO 0.23 K/mm3 (0.84-5.20); LYMPHOCYTES PERCENT AUTO 11 % (21-46); MONOCYTES ABSOLUTE AUTO 0.25 K/mm3 (0.16-1.47); MONOCYTES PERCENT AUTO 12 % (4-13); Mean Corpuscular HGB 31.9 pg (26.0-34.0); Mean Corpuscular Volume 94 fL (80-100); Mean Platelet Volume 9.7 fL (9.1-12.4); NEUTROPHILS ABSOLUTE AUTO 1.41 K/mm3 (1.96-9.15); NEUTROPHILS PERCENT AUTO 70 % (41-73); Platelet Count 99 K/mm3 (150-400); RDW Coefficient Variation 15.5 % (11.7-14.2); RDW Standard Deviation 51.4 fL (35.1-46.3); Red Blood Cell Count 2.07 M/mm3 (3.80-5.20); White Blood Cell Count 2.03 K/mm3 (4.00-11.30)
[2021-12-09 04:24] LABS: Albumin, Blood 2.6 g/dL (3.4-5.0); Albumin/Globulin Ratio 0.9 (0.8-1.8); Bilirubin, Total 0.4 mg/dL (0.1-1.0); Bun/Creatinine Ratio 18.2 (12.0-20.0); Calcium, Blood 8.2 mg/dL (8.5-10.1); Creatinine, Blood 0.99 mg/dL (0.40-1.00); Globulin, Blood 2.9 g/dL (2.2-4.0); Potassium, Blood 3.7 mmol/L (3.5-5.5); Total Protein, Blood 5.5 g/dL (6.4-8.2)
--- NOTE | 2021-12-09 07:07 | NUR ---
END OF SHIFT SUMMARY NO ACUTE EVENTS OVER NIGHT AND WAS ABLE TO SLEEP FOR MOST OF THE NIGHT. PT IS A/O X4 AND ABLE TO MAKE HER NEEDS KNOWN. SPO2 >95% ON 2L NC. HR 70-90'S. SBP 90-100; MAP 65-70; LEVOPHED OFF ALL SHIFT. PT ABLE TO AMBULATE TO TOILET WITH MINIMAL ASSISTANCE FOR CORD MANAGEMENT. MEDIPORT TO RT CHEST PATENT AND DRESSING C/D/I. NS INFUSING AT 75ML/HR. REPORT GIVEN TO MEGHAN TIDWELL.
--- NOTE | 2021-12-09 08:00 | NUR ---
PT A&OX4. REPORTS 10/06 LOW BACK/HIP PAIN-MED WITH FENTANYL 50 MCG IVP X 1. PT IS AFEBRILE. ECG SHOWS SR. MAP TRENDING 65-70'S. PT HAS BEEN OFF OF LEVOPHED SINCE 12/08 @ 1400. NO NOTED EDEMA. DP/PT PULSES 2+. LUNGS TIGHT WITH SCATTERED EXPIRATORY WHEEZES. SATS>90% ON 4 LITERS NASAL CANULA. UDN IN PROGRESS. NO NOTED COUGH OR SOB AT PRESENT. PT DENIES NAUSEA. NO NOTED GI DISTRESS. PT USES CALL LIGHT TO REQUEST ASSIST TO BRP PRN. SKIN IS PALE,W/D-NO NOTED BREAKDOWN. BILATERAL GROIN WITH BRUISING THAT IS BEGINNING TO FADE. ANTICIPATE STATUS CHANGE LATER TODAY.
--- NOTE | 2021-12-09 11:00 | NUR ---
PT REPORTS FEELING "ANXIOUS" TO RADHA SORIANO. DR. ROMERO UPDATED BY YAW BANG. PT MED WITH XANAX PO-SEE EMAR.
--- NOTE | 2021-12-09 11:16 | NUR ---
PT STATES THAT HER ANXIETY HAS IMPROVED-NO NOTED DISTRESS.
--- NOTE | 2021-12-09 12:00 | NUR ---
PT REPORTS 4/10 LOW BACK PAIN. MED WITH FENTANYL 50 MCG IVP X 1. LUNGS REMAIN TIGHT AND WHEEZY. SAT>90% ON 4 LITERS NASAL CANULA. VS WNL. DR. ROMERO HERE TO SEE PT. FULL UPDATE GIVEN. TYPE AND SCREEN DONE-PT TO RECEIVE 1 UNIT PRBC'S FOLLOWED BY 20 MG IV LASIX. CHANGE TO PCU STATUS.
--- NOTE | 2021-12-09 18:31 | NUR ---
1 UNIT PRBC'S COMPLETED. LASIX 20 MG IVP X1 HAS BEEN GIVEN-SEE EMAR. PT HAS BEEN UP TO BRP X 2 SINCE LASIX GIVEN. PT APPEARS LESS SOB WITH EXERTION. LUNGS REMAIN TIGHT WITH FEWER, SCATTERED WHEEZES. SATS>90% ON 2 LITERS NASAL CANULA. PT TOLERATING PO INTAKE WELL. CALL LIGHT WITHIN REACH. PT CALLS FOR ASSIST PRN.
--- NOTE | 2021-12-09 19:30 | NUR ---
ASSUMED CARE OF PT, BEDSIDE REPORT RECEIVED. PT IS ALERT AND ORIENTED, DENIES NEEDS AT THIS TIME, SHE REPORTS BEING IND IN ROOM NOW THAT NUMBER OF MONITORING CABLES IS DECREASED, WILL MONITOR
--- NOTE | 2021-12-10 01:37 | NUR ---
PT NOTED TO HAVE HEART RATE TO UPPER 140S ON ARRIVAL TO ROOM PT IS ALERT AND RECLINING IN BED, STATES THAT SHE WAS JUST UP TO TOILET FOR VOID, DENIES DIZZINESS/VERTIGO, DENIES CP/PRESSURE, DENIES SOB/DYSPNEA, STATES THAT SHE IS USUALLY SHORT OF BREATH ON RETURN TO BED HOWEVER THIS TIME SHE ACTUALLY FEELS QUITE GOOD AND HAS NO SHORTNESS OF BREATH. SHE DOES STATE THAT SHE DOES GO IN AND OUT OF AFIB FREQUENTLY. HEART RATE NOTED TO HAVE DECREASED TO LOW 100S AND PT CONVERTS BACK TO SINUS RHYTHM WITH RATE 80S. WILL MONITOR.
[2021-12-10 04:32] LABS: BASOPHILS ABSOLUTE AUTO 0.01 K/mm3 (0.00-0.23); BASOPHILS PERCENT AUTO 0 % (0-2); EOSINOPHILS ABSOLUTE AUTO 0.21 K/mm3 (0.00-0.68); EOSINOPHILS PERCENT AUTO 9 % (0-6); Hematocrit 25.4 % (33.0-51.0); Hemoglobin 8.5 g/dL (11.5-16.0); IMMATURE GRAN ABSOLUTE AUTO 0.01 K/mm3 (0.00-0.10); IMMATURE GRAN PERCENT AUTO 0 % (0-1); LYMPHOCYTES ABSOLUTE AUTO 0.26 K/mm3 (0.84-5.20); LYMPHOCYTES PERCENT AUTO 12 % (21-46); MONOCYTES ABSOLUTE AUTO 0.26 K/mm3 (0.16-1.47); MONOCYTES PERCENT AUTO 12 % (4-13); Mean Corpuscular HGB 31.1 pg (26.0-34.0); Mean Corpuscular HGB Conc 33.5 g/dL (31.5-36.5); Mean Corpuscular Volume 93 fL (80-100); Mean Platelet Volume 9.4 fL (9.1-12.4); NEUTROPHILS ABSOLUTE AUTO 1.52 K/mm3 (1.96-9.15); NEUTROPHILS PERCENT AUTO 67 % (41-73); Platelet Count 105 K/mm3 (150-400); RDW Coefficient Variation 15.7 % (11.7-14.2); RDW Standard Deviation 52.5 fL (35.1-46.3); Red Blood Cell Count 2.73 M/mm3 (3.80-5.20); White Blood Cell Count 2.27 K/mm3 (4.00-11.30)
[2021-12-10 04:52] LABS: Calcium, Blood 8.5 mg/dL (8.5-10.1); Creatinine, Blood 1.11 mg/dL (0.40-1.00); Potassium, Blood 3.8 mmol/L (3.5-5.5)
--- NOTE | 2021-12-10 06:43 | NUR ---
PT DENIES SOB/DYSPNEA THROUGHOUT NOC, DENIES CP/PRESSURE, VITALS REMAINED STABLE THROUGHOUT NOC. PT DID HAVE 1 EPISODE OF A-FIB WHILE GETTING UP TO TOILET IN ROOM, RATE BRIEFLY UP TO 140S HOWEVER HAD RESOLVED PRIOR TO RN ARRIVAL AT BEDSIDE. PT DENIED SYMPTOMS AND CONVERTED BACK TO SINUS RHYTHM. SHE HAS BEEN IND IN ROOM THIS SHIFT, REPORTS SLEEPING WELL, AND HOPES TO BE DISCHARGED TO HOME TODAY.
--- NOTE | 2021-12-10 08:00 | NUR ---
PT A&OX4. REPORTS 5/10 LOW BACK PAIN. MED WITH FENTANYL 50 MCG IVP X 1-SEE EMAR. ECG SHOWS SR. WITH RATE 90-100'S. SBP 120'S. NO NOTED EDEMA. DP/PT PULSES 2+. LUNGS SLIGHTLY TIGHT AND DIMINISHED TO THE BASES WITH FEW, SCATTERED, EXPIRATORY, WHEEZES. SATS>90% ON 2 LITERS NASAL CANULA. PT DENIES GI DISTRESS. UP AD MANDI PT BRP PRN. MEDIPORT REMAINS ACCESSED WITH NS TKO AND ANTIBIOTICS INFUSING. PT VERBALIZES THAT SHE IS FEELING BETTER OVERALL AND WOULD LIKE TO GO HOME TODAY.
[2021-12-10] MEDS ORDERED: AMOX-CLAV 875-1 EAC5 PO (13:03)
--- NOTE | 2021-12-10 13:42 | NUR ---
REVIEWED DISCHARGE INSTRUCTION WITH PT. PT VERBALIZES UNDERSTANDING. PT AWARE THAT [facility] WILL BE PROVIDING THE EQUIPMENT AND MEDICATION FOR HER NEBULIZER TREATMENTS. RX FOR AUGMENTIN PHONED TO [facility]. VIVIANA DEACCESSED PER PROTOCOL.
== END 2021-12-10 14:54 | disposition home or self-care (01) | DRG 871 ==
LOC: ER 19:52 → ICUW 22:54 → ER 23:48 → ICUW 12-08 00:17
PROVIDERS: Emergency Medicine; Internal Medicine; ADMIT Internal Medicine
PROC: 3E03329 Introduction of Other Anti-infective into Peripheral Vein, Percutaneous Approach (ICD-10-PCS; principal; 2021-12-07)
PROC: 3E033XZ Introduction of Vasopressor into Peripheral Vein, Percutaneous Approach (ICD-10-PCS; 2021-12-07)
PROC: 30233N1 Transfusion of Nonautologous Red Blood Cells into Peripheral Vein, Percutaneous Approach (ICD-10-PCS; 2021-12-09)
DX: A41.9 Sepsis, unspecified organism (principal); R65.21 Severe sepsis with septic shock; D61.810 Antineoplastic chemotherapy induced pancytopenia; I21.4 Non-ST elevation (NSTEMI) myocardial infarction; J96.01 Acute respiratory failure with hypoxia; Z66 Do not resuscitate; J18.9 Pneumonia, unspecified organism; N39.0 Urinary tract infection, site not specified; C34.90 Malignant neoplasm of unspecified part of unspecified bronchus or lung; I50.32 Chronic diastolic (congestive) heart failure; C91.10 Chronic lymphocytic leukemia of B-cell type not having achieved remission; D62 Acute posthemorrhagic anemia; R64 Cachexia; J44.0 Chronic obstructive pulmonary disease with (acute) lower respiratory infection; Z20.822 Contact with and (suspected) exposure to COVID-19; Z68.20 Body mass index [BMI] 20.0-20.9, adult; I48.91 Unspecified atrial fibrillation; T45.1X5A Adverse effect of antineoplastic and immunosuppressive drugs, initial encounter; I25.10 Atherosclerotic heart disease of native coronary artery without angina pectoris; F41.9 Anxiety disorder, unspecified; F32.A Depression, unspecified; K21.9 Gastro-esophageal reflux disease without esophagitis; E03.9 Hypothyroidism, unspecified; E78.5 Hyperlipidemia, unspecified; Z79.01 Long term (current) use of anticoagulants; Z79.899 Other long term (current) drug therapy; Z92.21 Personal history of antineoplastic chemotherapy; Z99.81 Dependence on supplemental oxygen; Z95.5 Presence of coronary angioplasty implant and graft; Z88.1 Allergy status to other antibiotic agents; Z88.5 Allergy status to narcotic agent; Z79.02 Long term (current) use of antithrombotics/antiplatelets; Z87.891 Personal history of nicotine dependence; Z90.49 Acquired absence of other specified parts of digestive tract; Z90.710 Acquired absence of both cervix and uterus; Z98.890 Other specified postprocedural states
CPT/HCPCS: 0241U; 36430; 71045; 80048; 80053; 80400; 81001; 82533; 82550; 83605; 83880; 84439; 84443; 84484; 85025; 86850; 86900; 86901; 86923; 87040; 87086; 93005; 93010; 94640; 94664; 94760; 94762; 96365; 96372; 96375; 99285-25; A9270; J0696; J0834; J1642; J1650; J1940; J2543; J3010; J7030; J7040; J7060; P9016

== ENCOUNTER → 2022-01-09 | Outpatient (CLI) | payer MEDICARE ==
[~2022-01-09] MED LIST changes: +AMOX-CLAV 875-1 EAC5 PO
== END | disposition home or self-care (01) ==
LOC: LAB SHORT 08:21
DX: N39.0 Urinary tract infection, site not specified (principal)
CPT/HCPCS: 87077; 87086; 87186

== ENCOUNTER → 2022-04-11 | Outpatient (CLI) | payer MEDICARE, OTHER ==
[~2022-04-11] MED LIST changes: +VENL75ER PO; -Venlafaxine HC225 MG PO
== END | disposition home or self-care (01) ==
LOC: LAB 12:51 → LAB SHORT 12:51
DX: R30.0 Dysuria (principal)
CPT/HCPCS: 87086

== ENCOUNTER 2022-05-23 17:36 | Emergency (ER) | payer MEDICARE ==
[~2022-05-23] VITALS: Ht 160 cm; Wt 49.9 kg
[2022-05-23 18:18] LABS: BASOPHILS ABSOLUTE AUTO 0.01 K/mm3 (0.00-0.23); BASOPHILS PERCENT AUTO 0 % (0-2); EOSINOPHILS PERCENT AUTO 3 % (0-6); Hematocrit 26.8 % (33.0-51.0); Hemoglobin 9.1 g/dL (11.5-16.0); IMMATURE GRAN ABSOLUTE AUTO 0.01 K/mm3 (0.00-0.10); IMMATURE GRAN PERCENT AUTO 0 % (0-1); LYMPHOCYTES ABSOLUTE AUTO 0.26 K/mm3 (0.84-5.20); LYMPHOCYTES PERCENT AUTO 8 % (21-46); MONOCYTES PERCENT AUTO 9 % (4-13); Mean Corpuscular HGB 31.4 pg (26.0-34.0); Mean Corpuscular Volume 92 fL (80-100); Mean Platelet Volume 9.9 fL (9.1-12.4); NEUTROPHILS ABSOLUTE AUTO 2.79 K/mm3 (1.96-9.15); NEUTROPHILS PERCENT AUTO 80 % (41-73); Platelet Count 131 K/mm3 (150-400); RDW Coefficient Variation 14.4 % (11.7-14.2); White Blood Cell Count 3.47 K/mm3 (4.00-11.30)
[2022-05-23 18:44] LABS: Albumin, Blood 3.2 g/dL (3.4-5.0); Albumin/Globulin Ratio 0.9 (0.8-1.8); Bilirubin, Total 0.5 mg/dL (0.1-1.0); Bun/Creatinine Ratio 24.4 (12.0-20.0); Creatinine, Blood 0.94 mg/dL (0.40-1.00); Globulin, Blood 3.4 g/dL (2.2-4.0); Total Protein, Blood 6.6 g/dL (6.4-8.2)
[2022-05-23 19:01] LABS: Influenza A, PCR NEGATIVE (NEGATIVE); Influenza B, PCR NEGATIVE (NEGATIVE); Resp Syncytial Virus, PCR NEGATIVE (NEGATIVE); SARS-Cov-2 (COVID-19) PCR, MMC NEGATIVE (NEGATIVE)
[2022-05-23 23:42] LABS: Source, Urine Clean Catch
[2022-05-23 23:45] LABS: Bilirubin, Urine Neg (Neg); Blood, Urine 1+ (Neg); Glucose Qualitative, Urine Neg (Neg); Ketones, Urine Neg (Neg); Leukocyte Esterase, Urine 1+ (Neg); Nitrite, Urine Neg (Neg); Protein, Urine 2+ (Neg); Urobilinogen, Urine NORM (Normal)
[2022-05-23 23:53] LABS: Appearance, Urine Turbid (Clear); Color, Urine Yellow (P-Yellow)
[2022-05-23 23:54] LABS: Amorphous Heavy (0-Heavy); Bacteria Few /hpf; Red Blood Cells, Urine 0-2 /hpf (0-2); Squamous Epithelial Cells Rare /hpf (Few)
== END 2022-05-24 00:11 | disposition home or self-care (01) ==
LOC: ER 17:36
PROVIDERS: Student in an Organized Health Care Education/Training Program
DX: R07.9 Chest pain, unspecified (principal); R06.02 Shortness of breath; C34.11 Malignant neoplasm of upper lobe, right bronchus or lung; K21.9 Gastro-esophageal reflux disease without esophagitis; J44.9 Chronic obstructive pulmonary disease, unspecified; E03.9 Hypothyroidism, unspecified; I50.9 Heart failure, unspecified; I48.91 Unspecified atrial fibrillation; I25.10 Atherosclerotic heart disease of native coronary artery without angina pectoris; F17.290 Nicotine dependence, other tobacco product, uncomplicated; Z20.822 Contact with and (suspected) exposure to COVID-19; Z79.899 Other long term (current) drug therapy; Z79.01 Long term (current) use of anticoagulants; Z99.81 Dependence on supplemental oxygen
CPT/HCPCS: 0241U; 71045; 71260; 80053; 81001; 83690; 83880; 84484; 85025; 85379; 93005; 93010; Q9967

== ENCOUNTER → 2022-06-17 | Outpatient (CLI) | payer MEDICARE ==
[~2022-06-17] MED LIST changes: +ELIQUIS2.5 MG PO; -ELIQUIS5 M2 PO; -Hydrocodone-Ap1 EA23 PO; +METOPROLOL SUCC25 MG PO; +Norco 10-325 T1 EACH PO
[2022-06-17 16:51] LABS: BASOPHILS ABSOLUTE AUTO 0.01 K/mm3 (0.00-0.23); BASOPHILS PERCENT AUTO 1 % (0-2); EOSINOPHILS ABSOLUTE AUTO 0.03 K/mm3 (0.00-0.68); EOSINOPHILS PERCENT AUTO 2 % (0-6); Hematocrit 25.6 % (33.0-51.0); Hemoglobin 9.2 g/dL (11.5-16.0); IMMATURE GRAN ABSOLUTE AUTO 0.01 K/mm3 (0.00-0.10); IMMATURE GRAN PERCENT AUTO 1 % (0-1); LYMPHOCYTES ABSOLUTE AUTO 0.12 K/mm3 (0.84-5.20); LYMPHOCYTES PERCENT AUTO 8 % (21-46); MONOCYTES ABSOLUTE AUTO 0.05 K/mm3 (0.16-1.47); MONOCYTES PERCENT AUTO 3 % (4-13); Mean Corpuscular HGB 30.6 pg (26.0-34.0); Mean Corpuscular HGB Conc 35.9 g/dL (31.5-36.5); Mean Corpuscular Volume 85 fL (80-100); Mean Platelet Volume 10.5 fL (9.1-12.4); NEUTROPHILS ABSOLUTE AUTO 1.36 K/mm3 (1.96-9.15); NEUTROPHILS PERCENT AUTO 86 % (41-73); Platelet Count 76 K/mm3 (150-400); RDW Coefficient Variation 13.9 % (11.7-14.2); RDW Standard Deviation 43.3 fL (35.1-46.3); Red Blood Cell Count 3.01 M/mm3 (3.80-5.20); White Blood Cell Count 1.58 K/mm3 (4.00-11.30)
[2022-06-17 17:17] LABS: Albumin, Blood 2.9 g/dL (3.4-5.0); Albumin/Globulin Ratio 0.9 (0.8-1.8); Bilirubin, Total 0.7 mg/dL (0.1-1.0); Bun/Creatinine Ratio 16.9 (12.0-20.0); Creatinine, Blood 7.81 mg/dL (0.40-1.00); Globulin, Blood 3.4 g/dL (2.2-4.0); Potassium, Blood 5.8 mmol/L (3.5-5.5); Total Protein, Blood 6.3 g/dL (6.4-8.2)
== END ==
LOC: LAB SHORT 16:04 → LAB 16:04
PROVIDERS: Nurse Practitioner
DX: C34.90 Malignant neoplasm of unspecified part of unspecified bronchus or lung (principal); C78.00 Secondary malignant neoplasm of unspecified lung
CPT/HCPCS: 80053; 85025